=== PATIENT | female | born 1990 | race Caucasian/White ===

== ENCOUNTER → 2016-06-28 | Outpatient (REF) | payer OTHER | LOC: M SFHCADAM 14:54 | PROVIDERS: ATTEND Physician Assistant | DX: R00.2 Palpitations (principal); K21.9 Gastro-esophageal reflux disease without esophagitis; Z53.9 Procedure and treatment not carried out, unspecified reason ==

== ENCOUNTER → 2016-07-15 | Outpatient (CLI) | payer OTHER ==
--- NOTE | 2016-07-15 17:16 | REP ---
Lumbar spine five views: Comparison is 02/22/2012. Vertebral body heights, interspacing and alignment are normal and unchanged. There is no spondylolysis or spondylolisthesis. The pedicles, facets and sacroiliac articulations are unremarkable. Impression: Negative lumbar spine. There is no interval change. Signed by Owen West MD 07/15/2016 10:57 A
== END ==
LOC: M WUC 10:09
PROVIDERS: ATTEND Physician Assistant
DX: S30.0XXA Contusion of lower back and pelvis, initial encounter (principal); X58.XXXA Exposure to other specified factors, initial encounter; Y93.9 Activity, unspecified; Y92.9 Unspecified place or not applicable; Y99.8 Other external cause status

== ENCOUNTER → 2016-12-18 | Outpatient (REF) | payer OTHER ==
[2016-12-18 20:15] LABS: MEAN CORPUSCULAR HEMOGLOBIN 29.9 pg (27.0-33.0); MEAN CORPUSCULAR HGB CONC 33.7 g/dl (32.0-36.5); MEAN CORPUSCULAR VOLUME 88.7 fl (80.0-96.0); RED CELL DISTRIBUTION WIDTH 12.3 % (11.5-14.5); WHITE BLOOD COUNT 6.1 K/mm3 (4.0-10.0)
[2016-12-18 20:24] LABS: ALBUMIN 3.8 GM/DL (3.2-5.2); ALBUMIN/GLOBULIN RATIO 1.09 (1.00-1.93); ALKALINE PHOSPHATASE 99 U/L (45-117); ALT/SGPT 22 U/L (12-78); ANION GAP 8 MEQ/L (8-16); AST/SGOT 12 U/L (15-37); BILIRUBIN,TOTAL 0.5 MG/DL (0.2-1.0); BLOOD UREA NITROGEN 10 MG/DL (7-18); CALCIUM LEVEL 9.2 MG/DL (8.5-10.1); CARBON DIOXIDE LEVEL 27 MEQ/L (21-32); CHLORIDE LEVEL 105 MEQ/L (98-107); CREATININE FOR GFR 0.95 MG/DL (0.55-1.02); GLOMERULAR FILTRATION RATE > 60.0 (>60); GLUCOSE, FASTING 83 MG/DL (70-105); POTASSIUM SERUM 4.6 MEQ/L (3.5-5.1); SODIUM LEVEL 140 MEQ/L (136-145); TOTAL PROTEIN 7.3 GM/DL (6.4-8.2)
== END ==
LOC: M SFHCADAM 11:29
PROVIDERS: ATTEND Physician Assistant
DX: F32.2 Major depressive disorder, single episode, severe without psychotic features (principal); F41.9 Anxiety disorder, unspecified

== ENCOUNTER → 2016-12-19 | Outpatient (REF) | payer OTHER | LOC: M SFHCADAM 09:50 | PROVIDERS: ATTEND Physician Assistant | DX: F32.2 Major depressive disorder, single episode, severe without psychotic features (principal); F41.9 Anxiety disorder, unspecified; Z53.9 Procedure and treatment not carried out, unspecified reason ==

== ENCOUNTER → 2017-02-25 | Outpatient (REF) | payer OTHER, MEDICAID | LOC: M LAB REF 20:59 | PROVIDERS: ATTEND Physician Assistant Medical | DX: J02.9 Acute pharyngitis, unspecified (principal) ==

== ENCOUNTER → 2017-03-25 | Outpatient (CLI) | payer OTHER, MEDICAID ==
--- NOTE | 2017-03-26 17:08 | REP ---
CHEST PA AND LATERAL: 03/25/2017. Clinical history: Productive cough and 3 days. Comparison 07/13/2014. Findings: Two-view show the lung sanchez well inflated. No pleural effusion, lateral pleural thickening, apical scar or pneumothorax. The heart, mediastinal and hilar contours are normal. There is no dense consolidation or parenchymal lung lesion. The airway and aorta were unremarkable. Hilar contours intact. There are a few cuffed bronchi in the perihilar regions that might reflect some reactive airway disease or bronchitis. The aorta and airway unremarkable. Bony thorax without focal lesion or compression deformity. Impression: 1. Perihilar changes of bronchitis or reactive airway disease without dense consolidation or pleural effusion. No other finding. Signed by Sanchez Patterson MD 03/26/2017 05:28 P
== END ==
LOC: M ADAMS 16:46
PROVIDERS: ATTEND Physician Assistant Medical
DX: J20.9 Acute bronchitis, unspecified (principal)

== ENCOUNTER → 2017-03-25 | Outpatient (REF) | payer OTHER, MEDICAID ==
[2017-03-25 20:43] LABS: BASO % 0.8 % (0.0-1.0); EOS # 0.1 10^3/uL (0.0-0.50); EOS % 2.6 % (0.0-3.0); IMMATURE GRANULOCYTE % 0.2 % (0-0); LYMPH # 1.9 10^3/uL (1.5-6.5); LYMPH % 38.3 % (24.0-44.0); MEAN CORPUSCULAR HEMOGLOBIN 29.3 pg (27.0-33.0); MEAN CORPUSCULAR HGB CONC 34.2 g/dl (32.0-36.5); MEAN CORPUSCULAR VOLUME 85.6 fl (80.0-96.0); MONO # 0.6 10^3/uL (0.0-0.8); MONO % 11.6 % (0.0-5.0); NEUTROPHILS # 2.3 10^3/uL (1.8-7.7); NEUTROPHILS % 46.5 % (36.0-66.0); PLATELET COUNT, AUTOMATED 282 10^3/uL (150-450); RED CELL DISTRIBUTION WIDTH 12.2 % (11.5-14.5)
[2017-03-26 10:35] LABS: CONTROL LINE MONO RF C INT CTR LINE PRESENT
== END ==
LOC: M LAB REF 19:30 → M LABDRWAD 19:31
PROVIDERS: ATTEND Physician Assistant Medical
DX: J20.9 Acute bronchitis, unspecified (principal); J06.9 Acute upper respiratory infection, unspecified

== ENCOUNTER → 2019-02-04 | Outpatient (REF) | payer OTHER ==
[2019-02-04 15:58] LABS: HEMATOCRIT 44.8 % (36.0-47.0); HEMOGLOBIN 14.9 g/dl (12.0-15.5); MEAN CORPUSCULAR HEMOGLOBIN 29.2 pg (27.0-33.0); MEAN CORPUSCULAR HGB CONC 33.3 g/dl (32.0-36.5); MEAN CORPUSCULAR VOLUME 87.7 fl (80.0-96.0); PLATELET COUNT, AUTOMATED 319 10^3/uL (150-450); RED BLOOD COUNT 5.11 10^6/uL (4.00-5.40); WHITE BLOOD COUNT 8.6 10^3/uL (4.0-10.0)
[2019-02-04 16:14] LABS: ALBUMIN 3.9 GM/DL (3.2-5.2); ALT/SGPT 19 U/L (12-78); BILIRUBIN,TOTAL 0.4 MG/DL (0.2-1.0); BLOOD UREA NITROGEN 11 MG/DL (7-18); CALCIUM LEVEL 9.1 MG/DL (8.5-10.1); CARBON DIOXIDE LEVEL 27 MEQ/L (21-32); CHLORIDE LEVEL 107 MEQ/L (98-107); CREATININE FOR GFR 1.05 MG/DL (0.55-1.30); FOLATE 10.6 NG/ML; FREE T4 1.21 NG/DL (0.76-1.46); GLOMERULAR FILTRATION RATE > 60.0 (>60); GLUCOSE, FASTING 93 MG/DL (70-100); POTASSIUM SERUM 5.2 MEQ/L (3.5-5.1); SODIUM LEVEL 140 MEQ/L (136-145); TOTAL 25(OH) VITAMIN D 19.1 NG/ML (30.0-100.0); TOTAL PROTEIN 7.1 GM/DL (6.4-8.2); VITAMIN B12 LEVEL 472 PG/ML
== END ==
LOC: M SFHCADAM 14:03
PROVIDERS: ATTEND Physician Assistant
DX: R51 Headache (principal); R06.83 Snoring

== ENCOUNTER → 2019-02-10 | Outpatient (CLI) | payer OTHER ==
--- NOTE | 2019-02-11 10:33 | REP ---
Clinical: Thyroid nodule. Technique: Real time aguilera scale and color evaluation using linear high frequency transducer. Findings: The thyroid gland is normal in contour, parenchymal echotexture and size. Isthmus measures 3 mm in width. Right lobe measures 5.0 x 2.0 x 1.1 cm and includes a nonspecific complex nodule measuring 2.1 x 1.0 x 1.7 cm. Left lobe measures 4.9 x 1.6 x 1.2 cm without nodule or cyst. Impression: 2.1 cm complex cystic nodule in the right lobe. Electronically Signed by Kel Mancia MD 02/11/2019 10:25 A
== END ==
LOC: M RAD 14:58
PROVIDERS: ATTEND Physician Assistant
DX: E04.1 Nontoxic single thyroid nodule (principal)

== ENCOUNTER → 2019-03-16 | Outpatient (REF) | payer OTHER | LOC: M LAB REF 12:56 | PROVIDERS: ATTEND Otolaryngology | DX: E04.1 Nontoxic single thyroid nodule (principal) ==

== ENCOUNTER → 2019-03-26 | Outpatient (CLI) | payer OTHER ==
--- NOTE | 2019-03-26 15:54 | REP ---
Two-view chest: 03/26/2019. Indication: Dyspnea. Comparison: 03/25/2017. Findings: The lungs are clear. There is no pleural effusion or pneumothorax. The cardiomediastinal silhouette is unremarkable. Impression: No acute cardiopulmonary process. Electronically Signed by Florencio Maloney DO 03/26/2019 03:45 P
== END ==
LOC: M ADAMS 15:21
PROVIDERS: ATTEND Physician Assistant
DX: R06.02 Shortness of breath (principal)

== ENCOUNTER → 2019-05-19 | Outpatient (REF) | payer OTHER | LOC: M SFHCADAM 12:41 | PROVIDERS: ATTEND Physician Assistant | DX: J02.9 Acute pharyngitis, unspecified (principal) ==

== ENCOUNTER → 2019-06-08 | Outpatient (REF) | payer OTHER | LOC: M SFHCADAM 09:47 | PROVIDERS: ATTEND Physician Assistant | DX: J02.9 Acute pharyngitis, unspecified (principal) ==

== ENCOUNTER → 2019-06-11 | Outpatient (REF) | payer OTHER | LOC: M SFHCADAM 12:53 | PROVIDERS: ATTEND Physician Assistant | DX: J02.0 Streptococcal pharyngitis (principal) ==

== ENCOUNTER 2019-11-18 07:30 | Day surgery (SDC) | payer OTHER ==
[~2019-11-18 07:30] MED LIST: LIDOCAINE 2% 100MG/5ML SDV (FOR ANES.) As Ordered ONE; MIDAZOLAM INJ 2MG/2ML VIAL (J2250 PER 1MG) As Ordered ONE; ROCURONIUM BROMIDE 50 MG/5 ML VIAL As Ordered ONE; fentaNYL 100 MCG/2 ML INJECTION (J3010) As Ordered ONE; propofoL 200 MG/20 ML VIAL As Ordered ONE
[2019-11-18] MEDS ORDERED: LIDOCAINE 1% SDV 30ML VIAL As Ordered ONE (07:53)
[2019-11-18] MEDS ORDERED: LIDOCAINE W/EPINEPHRINE 1% 20ML VIAL As Ordered ONE (07:54)
[2019-11-18] MEDS ORDERED: MIDAZOLAM INJ 2MG/2ML VIAL (J2250 PER 1MG) As Ordered ONE (07:57)
[2019-11-18] MEDS ORDERED: dexameTHASONE 4 MG/ML 1ML VIAL (J1100 PER 1MG) As Ordered ONE ×2 (08:09→08:10)
[2019-11-18] MEDS ORDERED: ONDANSETRON 4MG/2ML VIAL As Ordered ONE ×2 (08:10→10:16)
[2019-11-18] MEDS ORDERED: HYDROmorphone HCL 2 MG/ML 1ML VIAL (J1170) As Ordered ONE (08:27)
[2019-11-18] MEDS ORDERED: ACETAMINOPHEN 1000MG 100ML IV BTL (OFIRMEV) (J0131 PER 10MG) As Ordered ONE (08:33)
[2019-11-18] MEDS ORDERED: oxyCODONE 5MG TAB As Ordered ONE (08:57)
[2019-11-18] MEDS ORDERED: oxyCODONE 5MG TAB ONE (08:57)
[2019-11-18] MEDS ORDERED: ONDANSETRON 4MG/2ML VIAL ONE (10:16)
--- NOTE | 2020-01-13 11:14 | RO ---
DATE OF OPERATION: PREOPERATIVE DIAGNOSIS: Chronic tonsillitis. POSTOPERATIVE DIAGNOSIS: Chronic tonsillitis. OPERATIVE PROCEDURE: Tonsillectomy. PROCEDURE IN DETAIL: Under general anesthesia with the patient intubated, the patient was draped in the usual manner. I infiltrated with lidocaine with epinephrine. Using the cautery, I dissected the left tonsil free from its bed. I then did the same on the right side. There were some exposed vessels, which were not bleeding, and I cauterized them anyway. The patient tolerated the procedure well. ESTIMATED BLOOD LOSS: None. CONDITION: The patient was then extubated and transferred to the recovery room in excellent condition. DONALDO
== END 2019-11-18 10:45 | disposition home or self-care (01) ==
LOC: M SDC 07:30
PROVIDERS: ATTEND Otolaryngology
DX: J35.01 Chronic tonsillitis (principal); E04.1 Nontoxic single thyroid nodule; Z79.899 Other long term (current) drug therapy
CPT/HCPCS: 42826; 88302; J0131; J1100; J1170; J2250; J2405; J3010

== ENCOUNTER → 2020-02-10 | Outpatient (REF) | payer OTHER ==
[2020-02-10 13:22] LABS: APPEARANCE, URINE CLEAR (CLEAR); BACTERIA, URINE AUTO 1+ (NEGATIVE); BILIRUBIN, URINE AUTO NEGATIVE (NEGATIVE); BLOOD, URINE BLOOD 1+ (NEGATIVE); COLOR, URINE YELLOW (YELLOW); GLUCOSE, URINE (UA) AUTO NEGATIVE (NEGATIVE); KETONE, URINE AUTO NEGATIVE (NEGATIVE); LEUKOCYTE ESTERASE, URINE AUTO NEGATIVE (NEGATIVE); MUCUS, URINE SMALL (NEGATIVE); NITRITE, URINE AUTO NEGATIVE (NEGATIVE); PROTEIN, URINE AUTO NEGATIVE (NEGATIVE); RBC, URINE AUTO 0 /HPF (0-3); SPECIFIC GRAVITY URINE AUTO 1.006 (1.002-1.035); SQUAMOUS EPITHELIAL CELL UR AU 1 /HPF (0-6); UROBILINOGEN, URINE AUTO 0.2 mg/dL (0.0-2.0); WBC, URINE AUTO 0 /HPF (0-3)
[2020-02-10 13:49] LABS: ALBUMIN 3.7 GM/DL (3.2-5.2); ALT/SGPT 32 U/L (12-78); BILIRUBIN,TOTAL 0.4 MG/DL (0.2-1.0); BLOOD UREA NITROGEN 12 MG/DL (7-18); CALCIUM LEVEL 9.5 MG/DL (8.5-10.1); CARBON DIOXIDE LEVEL 26 MEQ/L (21-32); CHLORIDE LEVEL 107 MEQ/L (98-107); CREATININE FOR GFR 0.94 MG/DL (0.55-1.30); FREE T4 1.06 NG/DL (0.76-1.46); GLOMERULAR FILTRATION RATE > 60.0 (>60); GLUCOSE, FASTING 69 MG/DL (70-100); POTASSIUM SERUM 4.9 MEQ/L (3.5-5.1); SODIUM LEVEL 140 MEQ/L (136-145); THYROID STIMULATING HORMONE 0.713 uIU/ML (0.358-3.740); TOTAL PROTEIN 7.2 GM/DL (6.4-8.2)
== END ==
LOC: M SFHCPLAZ 12:10
PROVIDERS: ATTEND Physician Assistant
DX: E87.5 Hyperkalemia (principal); Z86.39 Personal history of other endocrine, nutritional and metabolic disease; Z80.51 Family history of malignant neoplasm of kidney

== ENCOUNTER → 2020-02-18 | Outpatient (REF) | payer OTHER ==
[2020-02-18 13:59] LABS: BASO % 0.8 % (0.0-1.0); EOS # 0.1 10^3/uL (0.0-0.5); EOS % 1.4 % (0.0-3.0); HEMATOCRIT 43.8 % (36.0-47.0); HEMOGLOBIN 14.5 g/dl (12.0-15.5); LYMPH # 2.1 10^3/uL (1.5-5.0); LYMPH % 40.4 % (24.0-44.0); MEAN CORPUSCULAR HEMOGLOBIN 28.3 pg (27.0-33.0); MEAN CORPUSCULAR HGB CONC 33.1 g/dl (32.0-36.5); MEAN CORPUSCULAR VOLUME 85.5 fl (80.0-96.0); MONO # 0.4 10^3/uL (0.0-0.8); MONO % 8.1 % (0.0-5.0); NEUTROPHILS # 2.5 10^3/uL (1.5-8.5); NEUTROPHILS % 48.9 % (36.0-66.0); PLATELET COUNT, AUTOMATED 286 10^3/uL (150-450); RED BLOOD COUNT 5.12 10^6/uL (4.00-5.40); WHITE BLOOD COUNT 5.1 10^3/uL (4.0-10.0)
[2020-02-18 14:40] LABS: MALB URINE SIEMENS 6.7 MG/L; MAU/CREAT RATIO 3.7 MCG/MG (0.0-30.0)
== END ==
LOC: M SFHCADAM 09:23
PROVIDERS: ATTEND Physician Assistant
DX: R00.2 Palpitations (principal); R31.29 Other microscopic hematuria

== ENCOUNTER → 2020-07-20 | Outpatient (CLI) | payer OTHER ==
--- NOTE | 2020-07-23 14:52 | HOLTMON ---
[facility] Test Date: 2020-07-20 Pat Name: ANIYAH KAUR Department: Room: - Gender: Female Television News Reporter: : 1990 Requested By: SHAMIKA Julio PA-C Order Number: [id number] Reading MD: Rajesh Pack Interpretive Statements Your patient was monitored for 48 hours. Her underlying rhythm was sinus with observed heart rate range 49-199, averaging 80 bpm. Fastest rate was associated with nonsustained ventricular tachycardia. No significant bradyarrhythmia or AV block Rare asymptomatic isolated PACs. Rare asymptomatic Unifocal isolated PVCs (Averaging 19/hour), rare ventricular couplets and 63 runs of nonsustained rapid monomorphic ventricular tachycardia (Longest 50 beats; fastest 218 bpm). All ventricular ectopy had a LBBB configuration With prominent R wave inferiorly and QS pattern lead I suggestive of right ventricular outflow tract origin. This is potentially amenable to RF ablation. Curiously, her symptoms did not correlate with her rhythm disturbance. Electronically Signed on 07-23-2020 14:51:41 EDT by Rajesh Pack
== END ==
LOC: M EKG 16:05
PROVIDERS: ATTEND Physician Assistant
DX: R00.2 Palpitations (principal)

== ENCOUNTER 2021-01-25 12:01 | Emergency (ER) | payer OTHER ==
[~2021-01-25] VITALS: Ht 165.1 cm; Wt 98.2 kg
--- OUTSIDE RECORDS SUMMARY | 2021-01-25 12:54 | CCD ---
Author Author [facility] Organization [facility] Address Unknown Phone Unavailable Care Team Providers Care Mental Retardation Aide Name Role Phone Marti Wang Unavailable PROBLEMS ALLERGIES ENCOUNTERS from 1990 to 2020-11-06 IMMUNIZATIONS SOCIAL HISTORY REASON FOR REFERRAL No Information VITAL SIGNS MEDICATIONS PROCEDURES No Information RESULTS No Results REASON FOR VISIT MEDICAL (GENERAL) HISTORY Goals Section Health Concerns MEDICAL EQUIPMENT No Information MENTAL STATUS FUNCTIONAL STATUS ASSESSMENTS No Information PLAN OF TREATMENT Insurance Providers
[2021-01-25 14:51] VITALS: BP 123/70
[2021-01-25] MEDS ORDERED: KETOROLAC 60MG 2ML VIAL IM ONE (15:30)
[2021-01-25] MEDS ORDERED: BACLOFEN 10 MG TAB PO ONE (15:30)
--- OUTSIDE RECORDS SUMMARY | 2021-01-25 15:42 | CCD ---
Author Author [facility] Organization [facility] Address Unknown Phone Unavailable Care Team Providers Care Lumber Racker Name Role Phone Gabriela Wallace Unavailable PROBLEMS Type Condition ICD9-CM Code [id number] Code Onset Dates Condition S tatus W/U Status Risk SNOMED Code Notes Problem Dysthymic disorder 300.4 Active confirmed 7 5612219 Problem Palpitations 785.1 Active confirmed 8885304 2 Problem GERD (gastroesophageal reflux disease) 530.81 A ctive confirmed 553658483 Problem Allergic rhinitis, unspecifi ed allergic rhinitis trigger, unspecified rhinitis seasonality J30.9 Active confirmed 49891982 Problem Gastroesophageal reflux disease without esophagitis K21.9 Active confirmed 610628983 Problem Thyroid nodule E04.1 Active confirmed 77399 5005 Problem Daily headache R51 Active confirmed 12186 8725309 Problem Strain of neck muscle, initial encounter S16.1XXA Active confirmed 136392334 Problem Nonsustained ventricular tachycardia I47.2 Act naseem confirmed 012770065 Problem Anxiety F41.9 Active confirmed 98043259 Problem Allergic rhinitis, unspecified seasonality, unspecifie d trigger J30.9 Active confirmed 51914876 Problem 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, 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 Active confirmed 63619218 Problem Chronic sinusitis, unspecified J32.9 Active confir med 352685079 Problem Tonsillith J35.8 Active confirmed 5452380 Problem Other chronic pain G89.29 Active confirmed 8 2299881 Problem Swollen tonsil J35.1 Active confirmed 44951 4001 ALLERGIES Allergen (clinical drug ingredient) Drug/Non Drug Allergy do cumented on EMR Reaction Allergy Type Onset Date Status Bandaid rash on skin Non Drug Allergy Active cetirizine ZyrTEC flushed face Drug Allergy Active ENCOUNTERS from 1990 to 2021-01-04 Encounter Location Date Provider Diagnosis [facility] [place] [address] [place] [id number] Dec, Gabriela Be-Tartell IMMUNIZATIONS Vaccine Route Administration Date Status Influenza 18 yrs & older Flublok IM Intramuscular Feb 10, 2020 Administered Influenza 18 yrs & older Flublok IM Intramuscular Feb 23, 2019 Administered SOCIAL HISTORY Tobacco Use: Social History Observation Description Date Details (start date - stop date) Never Smoker Sex Assigned At : Social History Observation Description Sex Assigned At Unknown Education: Question Answer Notes Level of Education: GED Audit Question Answer Notes Total Score: 1 Interpretation: Alcohol Education Language: Question Answer Notes Languages spoken: Belizean Domestic Violence: Question Answer Notes Status: Sexual Hx: Question Answer Notes Had sex in the last 12 months (vaginal, oral, or anal)? Yes LMP: 07/22/20 Have you ever had an STD? Yes with Men only Use protection? No Chlamydia? Yes Drug and Alcohol Question Answer Notes Total Score: 0 Interpretation: No problems reported Alcohol Screening: Question Answer Notes Did you have a drink containing alcohol in the past year? Ye s Points 1 Interpretation Negative How often did you have six or more drinks on one occas ion in the past year? Never (0 points) How many drinks did you have on a typica l day when you were drinking in the past year? 1 or 2 (0 points) How often did you have a drink containing alcohol in t he past year? Monthly or less (1 point) BMI Care Goal Follow-Up Question Answer Notes Above Normal BMI Follow-Up Dietary management educatio n, guidance, and counseling Tobacco Use: Question Answer Notes Are you a: never smoker REASON FOR REFERRAL No Information VITAL SIGNS No information MEDICATIONS Medication SIG (Take, Route, Frequency, Duration) Notes Start Da te End Date Status Flonase Allergy Relief 50 MCG/ACT 1 spray in each nost ril Nasally Once a day PRN Sep, Active NuvaRing 0.015-0.12 MG/24HR 1 ring Vaginal Active hydrOXYzine HCl 10 MG TAKE ONE TABLET BY MOUTH THR EE TIMES A DAY NEEDED Orally 3xs a day for 30 days Act naseem Omeprazole 20 MG TAKE ONE CAPSULE BY MOUTH TW ICE A DAY Orally 2xs a day for 90 days Active Metoprolol Tartrate 25 MG 1 tablet with food Orally Twice a day for 30 day(s) Active Claritin 10 MG 1 capsule Orally Once a day for 30 day(s) 1 August, Active PROCEDURES No Information RESULTS No Results REASON FOR VISIT Refills- Omeprazole 20 MG, Hydroxyzine 10MG MEDICAL (GENERAL) HISTORY Type Description Date Medical History Depression and anxiety Medical History GERD Medical History thyroid nodule - FNA biopsy neg 03/2019 Medical History Family h/o Renal Cell Carcinoma - brothe r at 33 y/o Surgical History tonsillectomy 11/2019 Hospitalization History childbirth Goals Section No Information Health Concerns No Information MEDICAL EQUIPMENT No Information MENTAL STATUS No Information FUNCTIONAL STATUS No Information ASSESSMENTS No Information PLAN OF TREATMENT Medication Medication Name Sig Start Date Stop Date hydrOXYzine HCl 10 MG TAKE ONE TABLET BY MOUTH THR EE TIMES A DAY NEEDED Orally 3xs a day for 30 days Omeprazole 20 MG TAKE ONE CAPSULE BY MOUTH TW ICE A DAY Orally 2xs a day for 90 days Insurance Providers Payer Name Payer Address Payer Phone Insured Name Patient Relati onship to Insured Coverage Start Date Coverage End Date [facility] [address] [facility] [phone] ANIYAH KAUR self
--- OUTSIDE RECORDS SUMMARY | 2021-01-25 15:42 | CCD ---
Author Author [facility] Organization [facility] Address Unknown Phone Unavailable Care Team Providers Care Electrical Engineering Draftsperson Name Role Phone Gabriela Wallace Unavailable PROBLEMS Type Condition ICD9-CM Code WQP65-UY Code Onset Dates Condition S tatus W/U Status Risk SNOMED Code Notes Problem Dysthymic disorder 300.4 Active confirmed 7 0115129 Problem Palpitations 785.1 Active confirmed 4580495 2 Problem GERD (gastroesophageal reflux disease) 530.81 A ctive confirmed 226064442 Problem Allergic rhinitis, unspecifi ed allergic rhinitis trigger, unspecified rhinitis seasonality J30.9 Active confirmed 05056039 Problem Gastroesophageal reflux disease without esophagitis K21.9 Active confirmed 488878668 Problem Thyroid nodule E04.1 Active confirmed 47919 5005 Problem Daily headache R51 Active confirmed 96515 9052379 Problem Strain of neck muscle, initial encounter S16.1XXA Active confirmed 986703134 Problem Nonsustained ventricular tachycardia I47.2 Act naseem confirmed 813197500 Problem Anxiety F41.9 Active confirmed 62415248 Problem Allergic rhinitis, unspecified seasonality, unspecifie d trigger J30.9 Active confirmed 08029117 Problem 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, 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 Active confirmed 03518309 Problem Chronic sinusitis, unspecified J32.9 Active confir med 619468457 Problem Tonsillith J35.8 Active confirmed 3396097 Problem Other chronic pain G89.29 Active confirmed 8 8584792 Problem Swollen tonsil J35.1 Active confirmed 65199 4001 ALLERGIES Allergen (clinical drug ingredient) Drug/Non Drug Allergy do cumented on EMR Reaction Allergy Type Onset Date Status Bandaid rash on skin Non Drug Allergy Active cetirizine ZyrTEC flushed face Drug Allergy Active ENCOUNTERS from 1990 to 2020-11-15 Encounter Location Date Provider Diagnosis [facility] [place] [address] [place] [address] Oct, Gabriela Wallace Annual physical exam Z00.00 IMMUNIZATIONS Vaccine Route Administration Date Status Influenza [...] Education Language: Question Answer Notes Languages spoken: Wolof Domestic Violence: Question Answer Notes Status: Sexual [...] REASON FOR REFERRAL No Information VITAL SIGNS Weight 211.2 lbs Oct, Height 65 in Oct, BMI 35.14 kg/m2 Oct, Heart Rate 83 /min Oct, Respiratory Rate 18 /min Oct, Temperature 97.8 degrees Fahrenheit Oct, Oximetry 100 Oct, Blood pressure systolic 110 mm Hg Oct, Blood pressure diastolic 68 mm Hg Oct, MEDICATIONS Medication SIG (Take, Route, Frequency, Duration) Notes Start Da te End Date Status hydrOXYzine HCl 10 MG TAKE ONE TABLET BY MOUTH THR EE TIMES A DAY NEEDED for 30 Active NuvaRing 0.015-0.12 MG/24HR 1 ring Vaginal Active Claritin 10 MG 1 capsule Orally Once a day for 30 day(s) 1 August, Active Flonase Allergy Relief 50 MCG/ACT 1 spray in each nost ril Nasally Once a day PRN Sep, Active Metoprolol Tartrate 25 MG 1 tablet with food Orally Twice a day for 30 day(s) Active Omeprazole 20 MG TAKE ONE CAPSULE BY MOUTH TWICE A DAY for 30 Active PROCEDURES No Information RESULTS No Results REASON FOR VISIT r/s FU MEDICAL (GENERAL) HISTORY Type Description Date Medical [...] No Information FUNCTIONAL STATUS No Information ASSESSMENTS Encounter Date Diagnosis Assessment Notes Treatment Notes Treatm ent Clinical Notes Oct, Annual physical exam (ICD-10 - Z00.00) Patient seen and examined. Past medical, surgical, family, social history reviewed. Discussed preventive medicine, including immunizations. Appropriate labwork has been ordered within the last year. PLAN OF TREATMENT Treatment Notes Assessment Notes Clinical Notes Annual physical exam Patient seen and ex amined. Past medical, surgical, family, social history reviewed. Discussed preventive medicine, including immunizations. Appropriate labwork has been ordered within the last year. Next Appt Details 1 Year Reason:annual Follow Up:1 Yearannual Insurance Providers Payer Name Payer Address Payer Phone Insured Name Patient Relati onship to Insured Coverage Start Date Coverage End Date COUNT INCLUDES THE [facility] [place] [facility] [address] [facility] [id number] ANIYAH KAUR
--- OUTSIDE RECORDS SUMMARY | 2021-01-25 15:42 | CCD | Continuity of Care Document ---
Author Author Ida WONG MD Organization Unknown Address [address] [facility] [address] [place] [address] Phone [phone] Care Team Providers Care Sales Support Coordinator Name Role Phone Alie Schaffer P.A.-C. AUTM [phone] Central Scheduling AUTM [phone] Gabriela Wallace D.O. AUTM Problems Description No Information Available Social History Type Date Description Comments Sex Unknown ETOH Use Denies alcohol use Tobacco Use Start: Unknown Non Smoker Recreational Drug Use Denies Drug Use Allergies, Adverse Reactions, Alerts Active Allergies Reaction Severity Comments Date Zyrtec 03/16/2019 Medications Active Medications SIG Qnty Indications Ordering Provide r Date Nuvaring 0.12-0.015mg/24HR Ring [address] of vagina x 3weeks. remove x 1wk Unknown Omeprazole 20mg Capsules DR 1 by mouth every day Unknown Hydroxyzine HCL 10mg Tablets 1 tab by mouth every night at bedtime as needed for sleep aid / anxiety Unknown Flonase 50mcg/Act Suspension spray one spray in each nostril daily Unknown Metoprolol Tartrate 25mg Tablets Cathy Lewis Immunizations Description No Information Available Vital Signs Date Vital Result Comment 11/07/2020 11:14am Height 65 inches 5'5" Weight 190.00 lb BMI (Body Mass Index) 31.6 kg/m2 [place] Body Weight 125 lb Weight 86.184 kg BSA (Body Surface Area) 1.94 m2 11/25/2019 2:24pm Height 65 inches 5'5" Weight 190.00 lb BMI (Body Mass Index) 31.6 kg/m2 [place] Body Weight 125 lb Weight 86.184 kg BSA (Body Surface Area) 1.94 m2 Results Description No Information Available Procedures Description No Information Available Medical Devices Description No Information Available Encounters Description No Information Available Assessments Description No Information Available Plan of Treatment No Information Available Functional Status Description No Information Available Mental Status Description No Information Available Referrals Refer to Reason for Referral Status Appt Date Jimenez Wong M.D. Scheduled 11/07/[address] [place] [address] [phone]
--- OUTSIDE RECORDS SUMMARY | 2021-01-25 15:42 | CCD ---
Author Author [facility] Organization [facility] Address Unknown Phone Unavailable Care Team Providers Care Filling Hauler Name Role Phone Jimenez Wong MD Unavailable Unavailable Jimenez Wong MD Unavailable Unavailable Jimenez Wong MD Unavailable Unavailable Jimenez Wong MD Unavailable Unavailable Jimenez Wong MD Unavailable Unavailable Jimenez Wong MD Unavailable Unavailable Jimenez Wong MD Unavailable Unavailable Jimenez Wong MD Unavailable Unavailable Jimenez Wong MD Unavailable Unavailable Jimenez Wong MD Unavailable Unavailable Jimenez Wong MD Unavailable Unavailable Jimenez Wong MD Unavailable Unavailable Jimenez Wong MD Unavailable Unavailable Jimenez Wong MD Unavailable Unavailable Jimenez Wong MD Unavailable Unavailable Jimenez Wong MD Unavailable Unavailable Jimenez Wong MD Unavailable Unavailable Jimenez Wong MD Unavailable Unavailable Jimenez Wong MD Unavailable Unavailable Jimenez Wong MD Unavailable Unavailable Jimenez Wong MD Unavailable Unavailable Jimenez Wong MD Unavailable Unavailable Jimenez Wong MD Unavailable Unavailable Jimenez Wong MD Unavailable Unavailable Jimenez Wong MD Unavailable Unavailable Jimenez Wong MD Unavailable Unavailable Jimenez Wong MD Unavailable Unavailable Jimenez Wong MD Unavailable Unavailable Jimenez Wong MD Unavailable Unavailable Jimenez Wong MD Unavailable Unavailable Mclean, V MAYUR PA-C Unavailable Unavailable Mclean, V MAYUR PA-C Unavailable Unavailable Joshua, V MAYUR PA-C Unavailable Unavailable Joshua, V MAYUR PA-C Unavailable Unavailable Joshua, V MAYUR PA-C Unavailable Unavailable Mclean, V MAYUR PA-C Unavailable Unavailable Mclean, V MAYUR PA-C Unavailable Unavailable Mclean, V MAYUR PA-C Unavailable Unavailable Mclean, V MAYUR PA-C Unavailable Unavailable Joshua, V MAYUR PA-C Unavailable Unavailable Mclean, V MAYUR PA-C Unavailable Unavailable Mclean, V MAYUR PA-C Unavailable Unavailable Mclean, V MAYUR PA-C Unavailable Unavailable Joshua, V MAYUR PA-C Unavailable Unavailable Lizette Parker MD Unavailable Unavailable Lizette Parker MD Unavailable Unavailable Lizette Parker MD Unavailable Unavailable Lizette Parker MD Unavailable Unavailable Lizette Parker MD Unavailable Unavailable Lizette Parker MD Unavailable Unavailable Lizette Parker MD Unavailable Unavailable Lizette Parker MD Unavailable Unavailable Lizette Parker MD Unavailable Unavailable Lizette Parker MD Unavailable Unavailable Lizette Parker MD Unavailable Unavailable Lizette Parker MD Unavailable Unavailable Lizette Parker MD Unavailable Unavailable Lizette Parker MD Unavailable Unavailable Lizette Parker MD Unavailable Unavailable Lizette Parker MD Unavailable Unavailable Lizette Parker MD Unavailable Unavailable Lizette Parker MD Unavailable Unavailable Lizette Parker MD Unavailable Unavailable Lizette Parker MD Unavailable Unavailable Lizette Parker MD Unavailable Unavailable Lizette Parker MD Unavailable Unavailable Lizette Parker MD Unavailable Unavailable Lizette Parker MD Unavailable Unavailable Lizette Parker MD Unavailable Unavailable Wetterhahn, M Alie PA Unavailable Unavailable Wetterhahn, M Alie PA Unavailable Unavailable Wetterhahn, M Alie PA Unavailable Unavailable Wetterhahn, M Alie PA Unavailable Unavailable Wetterhahn, M Alie PA Unavailable Unavailable Wetterhahn, M Alie PA Unavailable Unavailable Wetterhahn, M Alie PA Unavailable Unavailable Wetterhahn, M Alie PA Unavailable Unavailable Wetterhahn, M Alie PA Unavailable Unavailable Wetterhahn, M Alie PA Unavailable Unavailable Wetterhahn, M Alie PA Unavailable Unavailable Wetterhahn, M Alie PA Unavailable Unavailable Wetterhahn, M Alie PA Unavailable Unavailable Wetterhahn, M Alie PA Unavailable Unavailable Wetterhahn, M Alie PA Unavailable Unavailable Wetterhahn, M Alie PA Unavailable Unavailable Wetterhahn, M Alie PA Unavailable Unavailable Wetterhahn, M Alie PA Unavailable Unavailable Wetterhahn, M Alie PA Unavailable Unavailable Wetterhahn, M Alie PA Unavailable Unavailable Wetterhahn, M Alie PA Unavailable Unavailable Wetterhahn, M Alie PA Unavailable Unavailable Wetterhahn, M Alie PA Unavailable Unavailable Wetterhahn, M Alie PA Unavailable Unavailable Wetterhahn, M Alie PA Unavailable Unavailable Wetterhahn, M Alie PA Unavailable Unavailable Wetterhahn, M Alie PA Unavailable Unavailable Wetterhahn, M Alie PA Unavailable Unavailable Wetterhahn, M Alie PA Unavailable Unavailable Wetterhahn, M Alie PA Unavailable Unavailable Wetterhahn, M Alie PA Unavailable Unavailable Wetterhahn, M Alie PA Unavailable Unavailable Wetterhahn, M Alie PA Unavailable Unavailable Wetterhahn, M Alie PA Unavailable Unavailable Wetterhahn, M Alie PA Unavailable Unavailable Wetterhahn, M Alie PA Unavailable Unavailable Wetterhahn, M Alie PA Unavailable Unavailable Wetterhahn, M Alie PA Unavailable Unavailable Wetterhahn, M Alie PA Unavailable Unavailable Wetterhahn, M Alie PA Unavailable Unavailable Wetterhahn, M Alie PA Unavailable Unavailable Wetterhahn, M Alie PA Unavailable Unavailable Wetterhahn, M Alie PA Unavailable Unavailable Wetterhahn, M Alie PA Unavailable Unavailable Wetterhahn, M Alie PA Unavailable Unavailable Wetterhahn, M Alie PA Unavailable Unavailable Wetterhahn, M Alie PA Unavailable Unavailable Wetterhahn, M Alie PA Unavailable Unavailable Wetterhahn, M Alie PA Unavailable Unavailable Wetterhahn, M Alie PA Unavailable Unavailable Wetterhahn, M Alie PA Unavailable Unavailable Wetterhahn, M Alie PA Unavailable Unavailable Wetterhahn, M Alie PA Unavailable Unavailable Wetterhahn, M Alie PA Unavailable Unavailable Wetterhahn, M Alie PA Unavailable Unavailable Hernandez, Badger Isabell Unavailable Unavailable Hernandez, Badger Isabell Unavailable Unavailable Hernandez, Badger Isabell Unavailable Unavailable Hernandez, Badger Isabell Unavailable Unavailable Hernandez, Badger Isabell Unavailable Unavailable Hernandez, Badger Isabell Unavailable Unavailable Hernandez, Badger Isabell Unavailable Unavailable Hernandez, Badger Isabell Unavailable Unavailable Hernandez, Badger Isabell Unavailable Unavailable Hernandez, Badger Isabell Unavailable Unavailable Hernandez, Badger Isabell Unavailable Unavailable Hernandez, Badger Isabell Unavailable Unavailable Hernandez, Badger Isabell Unavailable Unavailable Re-disclosure Warning The records that you are about to access may contain information from federally-assisted alcohol or drug abuse programs. If such information is present, then the following federally mandated warning applies: This information has been disclosed to you from records protected by federal confidentiality rules (42 CFR part 2). The federal rules prohibit you from making any further disclosure of this information unless further disclosure is expressly permitted by the written consent of the person to whom it pertains or as otherwise permitted by 42 CFR part 2. A general authorization for the release of medical or other information is NOT sufficient for this purpose. The Federal rules restrict any use of the information to criminally investigate or prosecute any alcohol or drug abuse patient.The records that you are about to access may contain highly sensitive health information, the redisclosure of which is protected by Article 27-F of the [facility] Public Health law. If you continue you may have access to information: Regarding HIV / AIDS; Provided by facilities licensed or operated by the [facility] Office of Mental Health; or Provided by the [facility] Office for People With Developmental Disabilities. If such information is present, then the following [facility] mandated warning applies: This information has been disclosed to you from confidential records which are protected by state law. State law prohibits you from making any further disclosure of this information without the specific written consent of the person to whom it pertains, or as otherwise permitted by law. Any unauthorized further disclosure in violation of state law may result in a fine or group home sentence or both. A general authorization for the release of medical or other information is NOT sufficient authorization for further disc losure. Allergies and Adverse Reactions Type Description Substance Reaction Status Data Source(s ) Propensity to adverse reactions CETIRIZINE Cetirizine Acti ve [facility] Allergy to substance Allergy to substance Allergy to substance [place] ([facility]) Allergy to substance Allergy to substance Allergy to substance [place] ([facility]) Family History Family Member Name Family Member Gender Family Member Status Date o f Status Description Data Source(s) Unknown Unknown Problem MEDENT ([facility]) father Encounters Encounter Providers Location Date Indications Data Source(s ) Unknown [address] [facility] [address] 01/04/2021 12:00:00 AM EDT eCW1 ([facility]) Outpatient Attender: MAYUR HERNANDEZVAUGHN-SJP.VAUGHN 12:00:00 AM EDT - 12/04/2020 01:52:44 PM EDT [facility] Outpatient Attender: Jimenez Larry/Marvin/Beto/Angelica jimenez 11/07/2020 11:10:00 AM EDT MEDENT ([facility]) [place] [address] [facility] [address] 11/06/2020 12:00:00 AM EDT eCW1 ([facility]) Outpatient [address] [facility] [address] 11/02/2020 12:00:00 AM EDT eCW1 ([facility]) Outpatient Attender: MAYUR HERNANDEZVAUGHN-SJP.VAUGHN 07:11:47 AM EDT [facility] Unknown [address] [facility] [address] 10/27/2020 12:00:00 AM EDT eCW1 ([facility]) Outpatient Referrer: MAYUR HERNANDEZCT-SJP.SYR 12:00:00 AM EDT [facility] Outpatient Attender: MAYUR Mccrackenferrer: RIKKI HERNANDEZVAUGHN-SJP.VAUGHN 10/19/2020 08:58:26 AM EDT - 10/19/2020 11:26:00 AM EDT [facility] Outpatient Attender: MAYUR Mccrackenferrer: RIKKI HERNANDEZVAUGHN-SJP.VAUGHN 10/19/2020 08:58:04 AM EDT - 10/19/2020 10:25:43 AM EDT [facility] Outpatient Referrer: MAYUR HERNANDEZVAUGHN-SJPJustinaVAUGHN 12:00:00 AM EDT [facility] Unknown [address] [facility] [address] 09/13/2020 12:00:00 AM EDT eCW1 ([facility]) Outpatient [address] [facility] [address] 08/23/2020 12:00:00 AM EDT eCW1 ([facility]) Unknown [address] [facility] [address] 08/23/2020 12:00:00 AM EDT eCW1 ([facility]) JOLYNN Currie-C: [address] [place] [phone], Ph. Attender: Isabell Hernandez [facility] 08/15/2020 12:00:00 AM EDT [place]IS ([facility]) Outpatient Attender: MAYUR Mccrackenferrer: Snow PEREZ.VAUGHN-SJP 08/07/2020 01:08:40 PM EDT - 08/07/2020 02:30:29 PM EDT [facility] Outpatient [address] [facility] [address] 07/27/2020 12:00:00 AM EDT eCW1 ([facility]) Unknown [address] [facility] [address] 07/27/2020 12:00:00 AM EDT eCW1 ([facility]) Unknown [address] [facility] [address] 07/24/2020 12:00:00 AM EDT eCW1 ([facility]) HERMELINDO CurrieC: [address] [place] [address], Ph. Attender: Isabell Hernandez [facility] Medical 07/18/2020 12:00:00 AM EDT LUIS ([facility]) HERMELINDO CurrieC: [address] [place] [address], Ph. Attender: Isabell Hernandez [facility] Medical 07/18/2020 12:00:00 AM EDT [place] ([facility]) [place] [address] [facility] [address] 07/13/2020 12:00:00 AM EDT eCW1 ([facility]) Unknown [address] [facility] [address] 07/12/2020 12:00:00 AM EDT eCW1 ([facility]) Outpatient Attender: Sharmaine Parker MD 0 05/26/2020 02:20:41 PM EST - 05/26/2020 03:24:06 PM EST [facility]Tap ([facility]) Unknown [address] [facility] [address] 03/07/2020 12:00:00 AM EST eCW1 [facility] Unknown [address] [facility] [address] 03/06/2020 12:00:00 AM EST eCW1 ([facility]) Unknown [address] [facility] [place] [address] 02/25/2020 12:00:00 AM EST eCW1 ([facility]) Unknown [address] [facility] [address] 02/24/2020 12:00:00 AM EST eCW1 ([facility]) Outpatient [address] [facility] [place] [address] 02/18/2020 12:00:00 AM EST eCW1 ([facility]) Outpatient [address] [facility] [address] 02/10/2020 12:00:00 AM EST eCW1 ([facility]) Immunizations Vaccine Date Status Description Data Source(s) COVID-19, mRNA, LNP-S, PF, 100 mcg/0.5 mL dose 08/15/2020 04 :29:14 PM EDT completed 10.5 mL [place] ([facility]) COVID-19 VACCINE Moderna 08/15/2020 12:00:00 AM EDT completed [facility] Vaccine Series Complete: YESThis Data wa s Submitted to [facility] Via [facility] [facility]. COVID-19, mRNA, LNP-S, PF, 100 mcg/0.5 mL dose 07/18/2020 04 :43:39 PM EDT completed .5 mL [place] ([facility]) COVID-19, mRNA, LNP-S, PF, 100 mcg/0.5 mL dose 07/18/2020 04 :43:39 PM EDT completed .5 mL [place] ([facility]) COVID-19 VACCINE Moderna 07/18/2020 12:00:00 AM EDT completed [facility] Vaccine Series Complete: NOThis Data was Submitted to [facility] Via [facility]. influenza, recombinant, quadrIvalent,injectable, prese rvative free 02/10/2020 09:20:00 AM EST completed eCW1 ([facility]) influenza, recombinant, quadrIvalent,injectable, prese rvative free 02/10/2020 09:20:00 AM EST completed eCW1 ([facility]) influenza, recombinant, quadrIvalent,injectable, prese rvative free 02/10/2020 09:20:00 AM EST completed eCW1 ([facility]) influenza, recombinant, quadrIvalent,injectable, prese rvative free 02/10/2020 09:20:00 AM EST completed eCW1 ([facility]) influenza, recombinant, quadrIvalent,injectable, prese rvative free 02/10/2020 09:20:00 AM EST completed eCW1 ([facility]) influenza, recombinant, quadrIvalent,injectable, prese rvative free 02/10/2020 09:20:00 AM EST completed eCW1 ([facility]) influenza, recombinant, quadrIvalent,injectable, prese rvative free 02/10/2020 09:20:00 AM EST completed eCW1 ([facility]) influenza, recombinant, quadrIvalent,injectable, prese rvative free 02/10/2020 09:20:00 AM EST completed eCW1 ([facility]) influenza, recombinant, quadrIvalent,injectable, prese rvative free 02/10/2020 09:20:00 AM EST completed eCW1 ([facility]) influenza, recombinant, quadrIvalent,injectable, prese rvative free 02/10/2020 09:20:00 AM EST completed eCW1 ([facility]) influenza, recombinant, quadrIvalent,injectable, prese rvative free 02/10/2020 09:20:00 AM EST completed eCW1 ([facility]) influenza, recombinant, quadrIvalent,injectable, prese rvative free 02/10/2020 09:20:00 AM EST completed eCW1 ([facility]) influenza, recombinant, quadrIvalent,injectable, prese rvative free 02/10/2020 09:20:00 AM EST completed eCW1 ([facility]) influenza, recombinant, quadrIvalent,injectable, prese rvative free 02/10/2020 09:20:00 AM EST completed eCW1 ([facility]) influenza, recombinant, quadrIvalent,injectable, prese rvative free 02/10/2020 09:20:00 AM EST completed eCW1 ([facility]) influenza, recombinant, quadrIvalent,injectable, prese rvative free 02/10/2020 09:20:00 AM EST completed eCW1 ([facility]) influenza, recombinant, quadrIvalent,injectable, prese rvative free 02/10/2020 09:20:00 AM EST completed eCW1 ([facility]) influenza, recombinant, quadrIvalent,injectable, prese rvative free 02/10/2020 09:20:00 AM EST completed eCW1 ([facility]) Medications Medication Brand Name Start Date Product Form Dose Route Admi nistrative Instructions Pharmacy Instructions Status Indications Reaction Description Data Source(s) 10 mg 01/05/2021 12:00:00 AM EDT tablet 90 TAKE ONE TABLET BY MOUTH THREE TIMES A DAY NEEDED TAKE ONE TABLET BY MOUTH THREE TIMES A DAY NEEDED S OLD: 01/06/2021 [facility] 20 mg 01/05/2021 12:00:00 AM EDT capsule,delayed release (DR/EC) 180 TAKE ONE CAPSULE BY MOUTH TWICE A DAY TAKE ONE CAPSULE BY MOUTH TWICE A DAY SOLD: 01/06/2021 [facility] Metoprolol Tartrate 25 MG Oral Tablet me toprolol tartrate (LOPRESSOR) 25 MG tablet metoprolol tartrate (LOPRESSOR) 25 MG tablet 12/04/2020 12:0 0:00 AM EDT 25 mg Oral active Take 1 tablet (2 5 mg total) by mouth 2 (two) times a day [facility] 25 mg 12/04/2020 12:00:00 AM EDT tablet 60 TAKE ONE TABLET BY MOUTH TWICE A DAY TAKE ONE TABLET BY MOUTH TWICE A DAY SOLD: 12/13/2020 [facility] 25 mg 12/04/2020 12:00:00 AM EDT tablet 60 TAKE ONE TABLET BY MOUTH TWICE A DAY TAKE ONE TABLET BY MOUTH TWICE A DAY SOLD: 01/13/2021 [facility] Metoprolol Tartrate 25 MG Oral Tablet me toprolol tartrate (LOPRESSOR) 25 MG tablet metoprolol tartrate (LOPRESSOR) 25 MG tablet 12/04/2020 12:0 0:00 AM EDT aborted TAKE ONE TABLET BY MOUTH TWICE A DAY [facility] 0.12-0.015 mg/24 hr 10/17/2020 12:00:00 AM EDT ring 3 INSERT ONE RING VAGINALLY. LEAVE IN FOR 3 WEEKS AND ONE WEEK FREE INSERT ONE RING VAGINALLY. LEAVE IN FOR 3 WEEKS AND ONE WEEK FREE SOLD: 01/06/2021 [facility] 0.12-0.015 mg/24 hr 10/17/2020 12:00:00 AM EDT ring 3 INSERT ONE RING VAGINALLY. LEAVE IN FOR 3 WEEKS AND ONE WEEK FREE INSERT ONE RING VAGINALLY. LEAVE IN FOR 3 WEEKS AND ONE WEEK FREE SOLD: 10/17/2020 [facility] Loratadine 10 MG Oral Tablet loratadine (CLARITIN) 10 MG tablet loratadine (CLARITIN) 10 MG tablet 09/23/2020 12:00:00 AM EDT 10 mg Oral active Take 10 mg by mouth daily [facility] 10 mg 08/24/2020 12:00:00 AM EDT tablet 30 TAKE ONE TABLET BY MOUTH EVERY DAY TAKE ONE TABLET BY MOUTH EVERY DAY SOLD: 12/02/2020 [facility] 10 mg 08/24/2020 12:00:00 AM EDT tablet 30 TAKE ONE TABLET BY MOUTH EVERY DAY TAKE ONE TABLET BY MOUTH EVERY DAY SOLD: 08/26/2020 [facility] 10 mg 08/24/2020 12:00:00 AM EDT tablet 30 TAKE ONE TABLET BY MOUTH EVERY DAY TAKE ONE TABLET BY MOUTH EVERY DAY SOLD: 11/01/2020 [facility] 10 mg 08/24/2020 12:00:00 AM EDT tablet 30 TAKE ONE TABLET BY MOUTH EVERY DAY TAKE ONE TABLET BY MOUTH EVERY DAY SOLD: 01/01/2021 [facility] 10 mg 08/24/2020 12:00:00 AM EDT tablet 30 TAKE ONE TABLET BY MOUTH EVERY DAY TAKE ONE TABLET BY MOUTH EVERY DAY SOLD: 09/29/2020 [facility] Loratadine 10 MG Oral Capsule [Claritin] Claritin 10 MG Clar itin 10 MG 08/23/2020 12:00:00 AM EDT 1.0 {capsule} active Claritin 10 MG eCW1 ([facility]) Loratadine 10 MG Oral Capsule [Claritin] Claritin 10 MG Clar itin 10 MG 08/23/2020 12:00:00 AM EDT 1.0 {capsule} active Claritin 10 MG eCW1 ([facility]) Loratadine 10 MG Oral Capsule [Claritin] Claritin 10 MG Clar itin 10 MG 08/23/2020 12:00:00 AM EDT 1.0 {capsule} active Claritin 10 MG eCW1 ([facility]) Loratadine 10 MG Oral Capsule [Claritin] Claritin 10 MG Clar itin 10 MG 08/23/2020 12:00:00 AM EDT 1.0 {capsule} active Claritin 10 MG eCW1 ([facility]) Loratadine 10 MG Oral Capsule [Claritin] Claritin 10 MG Clar itin 10 MG 08/23/2020 12:00:00 AM EDT 1.0 {capsule} active eCW1 ([facility]) Loratadine 10 MG Oral Capsule [Claritin] Claritin 10 MG Clar itin 10 MG 08/23/2020 12:00:00 AM EDT 1.0 {capsule} active eCW1 ([facility]) Loratadine 10 MG Oral Capsule [Claritin] Claritin 10 MG Clar itin 10 MG 08/23/2020 12:00:00 AM EDT 1.0 {capsule} active Claritin 10 MG eCW1 ([facility]) 25 mg 08/08/2020 12:00:00 AM EDT tablet 60 TAKE ONE TABLET BY MOUTH TWICE A DAY TAKE ONE TABLET BY MOUTH TWICE A DAY SOLD: 10/06/2020 [facility] 25 mg 08/08/2020 12:00:00 AM EDT tablet 60 TAKE ONE TABLET BY MOUTH TWICE A DAY TAKE ONE TABLET BY MOUTH TWICE A DAY SOLD: 08/09/2020 [facility] 25 mg 08/08/2020 12:00:00 AM EDT tablet 60 TAKE ONE TABLET BY MOUTH TWICE A DAY TAKE ONE TABLET BY MOUTH TWICE A DAY SOLD: 09/06/2020 [facility] 25 mg 08/08/2020 12:00:00 AM EDT tablet 60 TAKE ONE TABLET BY MOUTH TWICE A DAY TAKE ONE TABLET BY MOUTH TWICE A DAY SOLD: 11/04/2020 [facility] Metoprolol Tartrate 25 MG Oral Tablet me toprolol tartrate (LOPRESSOR) 25 MG tablet metoprolol tartrate (LOPRESSOR) 25 MG tablet 08/07/2020 12:0 0:00 AM EDT 25 mg Oral active Take 1 tablet (2 5 mg total) by mouth 2 (two) times a day [facility] 20 mg 08/04/2020 12:00:00 AM EDT capsule,delayed release (DR/EC) 60 TAKE ONE CAPSULE BY MOUTH TWICE A DAY TAKE ONE CAPSULE BY MOUTH TWICE A DAY SOLD: 08/06/2020 [facility] 20 mg 08/04/2020 12:00:00 AM EDT capsule,delayed release (DR/EC) 60 TAKE ONE CAPSULE BY MOUTH TWICE A DAY TAKE ONE CAPSULE BY MOUTH TWICE A DAY SOLD: 12/02/2020 [facility] 20 mg 08/04/2020 12:00:00 AM EDT capsule,delayed release (DR/EC) 60 TAKE ONE CAPSULE BY MOUTH TWICE A DAY TAKE ONE CAPSULE BY MOUTH TWICE A DAY SOLD: 10/06/2020 [facility] 20 mg 08/04/2020 12:00:00 AM EDT capsule,delayed release (DR/EC) 60 TAKE ONE CAPSULE BY MOUTH TWICE A DAY TAKE ONE CAPSULE BY MOUTH TWICE A DAY SOLD: 11/04/2020 [facility] 20 mg 08/04/2020 12:00:00 AM EDT capsule,delayed release (DR/EC) 60 TAKE ONE CAPSULE BY MOUTH TWICE A DAY TAKE ONE CAPSULE BY MOUTH TWICE A DAY SOLD: 09/06/2020 [facility] 5-325 mg 05/17/2020 12:00:00 AM EST tablet 12 TAKE 1 TABLET BY MOUTH EVERY 6 HOURS NEEDED FOR PAIN MAXIMUM DAILY DOSE = 4 TABLETS TAKE 1 TABLET BY MOUTH EVERY 6 HOURS NEEDED FOR PAIN MAXIMUM DAILY DOSE = 4 TABLETS SOLD: 05/17/2020 [facility] 50 mcg/actuation 03/08/2020 12:00:00 AM EST spray,suspension 16 SPRAY 1 IN EACH NOSTRIL ONCE A DAY SPRAY 1 IN EACH NOSTRIL ONCE A DAY SOLD: 04/08/2020 [facility] 50 mcg/actuation 03/08/2020 12:00:00 AM EST spray,suspension 16 SPRAY 1 IN EACH NOSTRIL ONCE A DAY SPRAY 1 IN EACH NOSTRIL ONCE A DAY SOLD: 03/11/2020 [facility] 20 mg 01/10/2020 12:00:00 AM EDT capsule,delayed release (DR/EC) 60 TAKE ONE CAPSULE BY MOUTH TWICE A DAY TAKE ONE CAPSULE BY MOUTH TWICE A DAY SOLD: 07/07/2020 [facility] 20 mg 01/10/2020 12:00:00 AM EDT capsule,delayed release (DR/EC) 60 TAKE ONE CAPSULE BY MOUTH TWICE A DAY TAKE ONE CAPSULE BY MOUTH TWICE A DAY SOLD: 05/08/2020 [facility] 20 mg 01/10/2020 12:00:00 AM EDT capsule,delayed release (DR/EC) 60 TAKE ONE CAPSULE BY MOUTH TWICE A DAY TAKE ONE CAPSULE BY MOUTH TWICE A DAY SOLD: 04/08/2020 [facility] 20 mg 01/10/2020 12:00:00 AM EDT capsule,delayed release (DR/EC) 60 TAKE ONE CAPSULE BY MOUTH TWICE A DAY TAKE ONE CAPSULE BY MOUTH TWICE A DAY SOLD: 01/11/2020 [facility] 20 mg 01/10/2020 12:00:00 AM EDT capsule,delayed release (DR/EC) 60 TAKE ONE CAPSULE BY MOUTH TWICE A DAY TAKE ONE CAPSULE BY MOUTH TWICE A DAY SOLD: 06/06/2020 [facility] 20 mg 01/10/2020 12:00:00 AM EDT capsule,delayed release (DR/EC) 60 TAKE ONE CAPSULE BY MOUTH TWICE A DAY TAKE ONE CAPSULE BY MOUTH TWICE A DAY SOLD: 03/11/2020 [facility] 10 mg 11/10/2019 12:00:00 AM EDT tablet 90 TAKE ONE TABLET BY MOUTH THREE TIMES A DAY NEEDED TAKE ONE TABLET BY MOUTH THREE TIMES A DAY NEEDED S OLD: 04/08/2020 [facility] 10 mg 11/10/2019 12:00:00 AM EDT tablet 90 TAKE ONE TABLET BY MOUTH THREE TIMES A DAY NEEDED TAKE ONE TABLET BY MOUTH THREE TIMES A DAY NEEDED S OLD: 01/11/2020 [facility] 10 mg 11/10/2019 12:00:00 AM EDT tablet 90 TAKE ONE TABLET BY MOUTH THREE TIMES A DAY NEEDED TAKE ONE TABLET BY MOUTH THREE TIMES A DAY NEEDED S OLD: 03/11/2020 [facility] 10 mg 11/10/2019 12:00:00 AM EDT tablet 90 TAKE ONE TABLET BY MOUTH THREE TIMES A DAY NEEDED TAKE ONE TABLET BY MOUTH THREE TIMES A DAY NEEDED S OLD: 12/09/2019 [facility] 50 mcg/actuation 09/07/2019 12:00:00 AM EDT spray,suspension 16 SPRAY 1 SPRAY IN EACH NOSTRIL ONCE DAILY (THIS WILL LAST 60 DAYS) SPRAY 1 SPRAY IN EACH NOSTRIL ONCE DAILY (THIS WILL LAST 60 DAYS) SOLD: 12/09/2019 [facility] 50 mcg/actuation 09/07/2019 12:00:00 AM EDT spray,suspension 16 SPRAY 1 SPRAY IN EACH NOSTRIL ONCE DAILY (THIS WILL LAST 60 DAYS) SPRAY 1 SPRAY IN EACH NOSTRIL ONCE DAILY (THIS WILL LAST 60 DAYS) SOLD: 01/11/2020 [facility] 0.12-0.015 mg/24 hr 08/19/2019 12:00:00 AM EDT ring 3 INSERT 1 RING VAGINALLY EVERY 3 WEEKS THEN 1 RING-FREE WEEK DIRECTED INSERT 1 RING VAGINALLY EVERY 3 WEEKS THEN 1 RING-FREE WEEK DIRECTED SOLD: 07/25/2020 [facility] 0.12-0.015 mg/24 hr 08/19/2019 12:00:00 AM EDT ring 3 INSERT 1 RING VAGINALLY EVERY 3 WEEKS THEN 1 RING-FREE WEEK DIRECTED INSERT 1 RING VAGINALLY EVERY 3 WEEKS THEN 1 RING-FREE WEEK DIRECTED SOLD: 02/07/2020 [facility] 0.12-0.015 mg/24 hr 08/19/2019 12:00:00 AM EDT ring 3 INSERT 1 RING VAGINALLY EVERY 3 WEEKS THEN 1 RING-FREE WEEK DIRECTED INSERT 1 RING VAGINALLY EVERY 3 WEEKS THEN 1 RING-FREE WEEK DIRECTED SOLD: 05/01/2020 [facility] Insurance Providers Payer name Policy type / Coverage type Policy ID Covered green party ID Covered green party's relationship to albarran Policy Albarran Plan Information [facility] MEDICAID [id number] [place] [id number] [facility] MEDICAID [id number] [place] [employer] [id number] Self [id number] RPR- Needs Payer Match [id number] Self [id number] [facility] Health Maintenance Organization (O) [id number] Self [id number] [facility] Health Maintenance Organization (O) [id number] Self [id number] [facility] Health Maintenance Organization (O) [id number] Self [id number] [facility] [id number] [facility] Health Maintenance Organization (O) [id number] [facility] Health Maintenance Organization [place] [id number] [facility] Health Maintenance Organization [place] [id number] [facility] Health Maintenance Organization [place] [id number] [facility] Health Maintenance Organization ([facility] [id number] [facility] Health Maintenance Organization (O) [id number] [facility] Health Maintenance Organization (O) [id number] [facility] Health Maintenance Organization [place] [id number] [facility] Health Maintenance Organization (O) [id number] Self [facility](MCAID) P [id number] S [id number] [employer] [place] 306/8 S [id number] OTHER WORKERS COMPENSATI P [id number] S [id number] UNHC AMERICHOICE XIX O [id number] 18 [id number] BLUE CROSS BRENNER PLAN [id number] SP [id number] UNHC COMMUNITY PLAN [facility] [id number] SP [id number] [facility] COMMUNITY PLAN [facility] [id number] SP [id number] [facility] [id number] [facility] [id number] SP [id number] Problems, Conditions, and Diagnoses Code Display Name Description Problem Type Effective Dates Data Source(s) R00.2 Palpitations Palpitations Diagnosis 12/04/2020 09:47:25 A M EDT [facility] Z68.35 Body mass index (BMI) 35.0-35.9, adult B katherin mass index (BMI) 35.0-35.9, adult Diagnosis 10/19/2020 08:58:26 AM EDT [facility] E66.09 Other obesity due to excess calories Oth er obesity due to excess calories Diagnosis 10/19/2020 08:58:26 AM EDT [facility] I47.2 Ventricular tachycardia Ventricular tachycardia Diagno sis 10/19/2020 08:58:04 AM EDT [facility] R03.0 Elevated blood-pressure reading, without diagnosis of hypertension Elevated blood-pressure reading, without Diagnosis 08/07/2020 01:08:40 PM EDT [facility] J30.9 [id number] Allergic rhinitis, unspecified s easonality, unspecified trigger Problem 08/23/2020 12:00:00 AM EDT eC ([facility]) R03.0 Elevated blood pressure reading Elevated blood pressur e reading [id number] 08/07/2020 12:00:00 AM EDT [facility] E66.09 Class 2 obesity due to excess calories i n adult Class 2 obesity due to excess calories in adult [id number] 08/07/2020 12:00:00 AM EDT [facility] I47.2 NSVT (nonsustained ventricular tachycard ia) NSVT (nonsustained ventricular tachycardia) [id number] 08/07/2020 12:00:00 AM EDT [facility] I47.2 [id number] Nonsustained ventricular tachycardia Prob lisseth 07/27/2020 12:00:00 AM EDT eCW1 ([facility]) Surgeries/Procedures Procedure Description Date Indications Data Source(s) THYROID STIMULATING HORMONE TSH <td>TSH</td><td>Routin e</td><td>12/04/2020 3:01 PM EDT</td><td> Palpitations</td><td> </td> 12/04/2020 03:01:00 PM EDT Palpitations [facility] Palpitations BLOOD COUNT COMPLETE AUTOMATED <td>CBC</td><td>Routine </td><td>12/04/2020 3:01 PM EDT</td><td> Palpitations</td><td> </td> 12/04/2020 03:01:00 PM EDT Palpitations [facility] Palpitations BASIC METABOLIC PANEL CALCIUM TOTAL <td>BASIC METABOLI C PANEL</td><td>Routine</td><td>12/04/2020 3:01 PM EDT</td><td> Palpitations</td><td> </td> 12/04/2020 03:01:00 PM EDT Palpitations [facility] Palpitations THYROXINE FREE <td>T4, FREE</td><td>Routine </td><td>12/04/2020 3:01 PM EDT</td><td></td><td> </td> 12/04/2020 03:01:00 PM EDT [facility] ECG ROUTINE ECG W/LEAST 12 LDS W/I&R <td>POCT AMB EKG</td><td>Routine</td><td>12/04/2020 10:55 AM EDT</td><td> Palpitations</td><td> </td> 12/04/2020 10:55:00 AM EDT Palpitations [facility] Palpitations OFFICE OUTPATIENT VISIT 15 MINUTES 11/07/2020 12:00:00 AM EDT MEDENT ([facility] ) ECG ROUTINE ECG W/LEAST 12 LDS W/I&R 02/18/2020 12:00: 00 AM EST eCW1 ([facility]) Immunization: Flublok Quadrivalent (18 years & older) 0.5mL IM (Influenza) 02/10/2020 12:00:00 AM EST eCW1 ([facility]) Results ID Date Data Source [id number] 12/05/2020 10:40:32 PM EDT [facility] [place] Name Value Range Interpretation Code Description Data Kaela rce(s) Supporting Document(s) FREE THYROXINE @ 1.02 ng/dL (0.76-1.46) [facility] ID Date Data Source [id number] 10/24/2020 10:08:37 PM EDT [facility] Name Value Range Interpretation Code Description Data Kaela rce(s) Supporting Document(s) &PDF [facility] WARXSo7rHcUKQbQh69/FDXdxODIoe6JfPVmzDRv6DJofMTWbU4AatQxuWE4VIhRDR1zpPP9HWeNFAS6a oRX [file] Mz9Ne0GpOJIdZYqKuPMxHOLgIySMKBWh/5+HxBV++f//printing table worker+210qUTAwT6K0QOk+ScS1ChXO/yVZD3DZ f+n//35uVNoBYYpcHQ9tyO2A8X94qretBKXr3lN3Bp+BAr0+J/+lQwX8f/8Hg3/PCUV9i1OIwBnZN4ZR R6gAs/dmR37tkK4hWYKINC6ZVM4FLO7si2LgASMuTY okprViDbeJWqNkNMRlq5UoXCv5SR7MRORoNZdwXG8MK4QdOST9I0H6CkV3mVOgCL2eC8WzGpMgCB7lzV n0L8OwjNZQOBGRe00sv15ypoClLK8Mf1lfcaRpWFVoR9MkhhltMEEARs8EdCP6aSJoRp5LYNgveTRxWJ HgGALtZ7FvCSMjMG2IrYx5LVXnZn8QwYY7DEOjG73b QB5EZjHwB3MEXCNnTQW9GPSxIyCPEf1+NAsuvMQyGM5BPfrE+///PwMYBGRUQBADbvAfDECKEyqIV4+s DTayfP2cHs3CFnQcnj+hoYFE/xaQqJ64+ELWghQFHqjRgTV+GEbnkgppG3jJXiozq5pvY9Yz1uPB6EDa HggiIiJAuhKw+KBiPRHNH9c2RNqprhHzlYNvGT1ZNy SbQZ2isr7IHfFcTRAmJhqYIdqsDZpjeaTlRpyYWsBmZGMmMgwKVum2BRroFU6Nzy2fE9N8MYpeNWAPF7 KzlSXbFZ5bA1DRQ5ivEFoeZu5WScTaC8NwggKoMIddR9RaQIlwLIQDKEveJQCaN4WcSVJiPWCqOn4TWB YyXL1RYtNfJDTsCPK+Nf0QXYGnKW2pzqPmdGM0OQAj wE9jFFWkAEKbBAZSBdQaCFAxfR3wVAHlWuAoOJQCCsRbLZHqzS9qLqFvRnMhXZGIKkSlGZKemT8zDrBf FCHjCFPGYuOxEPLipH7hPMOcOFKwRFCJItRgYLVtzI5tAZHiGMYzDJK+Lx2FBLStAMo9M7X1DTNpJNv8 R0TZC8IIXJDqELvwZHqyJHBgFZu3T7A4CDYpR8SPH9 Rhcmtlbj4+HO2FO94APUTeMHm3W4M1mGMdX3S4mIkXuLE5DL1DAH7BsEt4gLBmnC3+PW4XF2PUArXrVA i8T7N2bVYcW6U3iDoQcWQ4WL6SNP3MsGHjLXXdllVlWa3xN5BUXJrCEcAOWMU5MZ0TnQUpIC3VyGOOH7 JenWGlYw5iEFvktBFhhS0pXw6kXRhjPK9LYlYHPPpK LXC3KM1FkKDeKC7MkGTIV4PnnEGiFg4zXZkydKZwab0+GL7AYHKuUv2DNs8+DQplbmRvYmoNCjIyIDAg c3UwQYg1DD9WEJ3sbUkeHSS7Al7WqJU3xMSjH9lUUW9UvCGaV84twBFiUHUjZn5JTjG6cwIspE0DRN03 uFJwh8H6JYVcD3omBQwkg45yDRozCQyYLY9tEBXUMH xqJXgnDFX1KdNfxzitSCItZa5OYbOxIRq4nN0apAE5RTS7QodqdFWiEXjxTuZtMsUtLbU5iOhxrsd7MM lnLE4xOWktwzmpMJOsYip+AIvcLSGzWHQvYpkHFEBwfD9gfuM8chMyBDqgsUKmTs2rh2g4YnmxAz3kXa 7hXFd0DfLwGiCgZCKcVu9kqV43PIgggyFoOc0JDxTt VVJ6H7AhNcfHXAR+UOjcDRvtxCs7rIRlENRsXa2KTTYaQRKiTVHuNDIdZRQmAJPwKKDhNTBiFWYfSZOc ICAgICAgICAgICAgICAgICAgICAgICAgICAgICAgICAgICAgICAgICAgICAgICAgICAgICAgICAgICAg NZVaNMUfTKOuEN9BTKTlSUNmFVPhYJLbSECzPRBsJD AgICAgICAgICAgICAgICAgICAgICAgICAgICAgICAgICAgICAgICAgICAgICAgICAgICAgICAgICAgIC WdSSJbWIOjMXJdUDQzZOLzULRjZO4JTFIqAOZdADOhVLQeIFUeXRFyKTCgSUOrBBTdJUQrSMNqSIJsRD AgICAgICAgICAgICAgICAgICAgICAgICAgICAgICAg BQHfHWJzRCNhFJWfNXFxOVBiZXQfDHBsKAIrRMFeJR0WJDQmYLWiVQYuETKwPBNyIXBaGXFaHAQnVRTd ICAgICAgICAgICAgICAgICAgICAgICAgICAgICAgICAgICAgICAgICAgICAgICAgICAgICAgICAgICAg NCDmRXYpJRQpOJLkME5AGCOmIYIvSEQfNVUjAMXeWG AgICAgICAgICAgICAgICAgICAgICAgICAgICAgICAgICAgICAgICAgICAgICAgICAgICAgICAgICAgIC OvHDXnUKLzWLMsBVLiKMNuJHGfDOGwVP4PQGClNGKmPXJbGHZmDRKsIVDrLHIlJFXmYWEbYGOhURLzML AgICAgICAgICAgICAgICAgICAgICAgICAgICAgICAg BLWuMZMaZHEhBFFyGJOrYBWmIXNcBTUwVWGhUPYfWIKuOZ5MIURaFUQtMRRcCQQjEMTcXWRpZRHsCPIp ICAgICAgICAgICAgICAgICAgICAgICAgICAgICAgICAgICAgICAgICAgICAgICAgICAgICAgICAgICAg HVSwXTEuWUMyXCYfHWJzSM4VMAAyLPXhQJAcTQFkRT AgICAgICAgICAgICAgICAgICAgICAgICAgICAgICAgICAgICAgICAgICAgICAgICAgICAgICAgICAgIC KsTQVnNWKtQCSgYAWdNYCaUHYcZSXkPVSyCK0TGBQnSWNlQBFuBEViHRCcOZQoICPpYWBbYHQnQYFhYD AgICAgICAgICAgICAgICAgICAgICAgICAgICAgICAg NFIqMQRjKUVdXFMjAWKfEBDfDFFtHHDbOYCoTZWrKFLdVYWnFT5KURGvYOFgLGMnJQOnVQYaBYPiJDLo ICAgICAgICAgICAgICAgICAgICAgICAgICAgICAgICAgICAgICAgICAgICAgICAgICAgICAgICAgICAg MFPxMDYaMBZcPXTeYTSeDZAvJF3KNN88bKDdl2S8VL LfVF5hzfp/Qd6GSFkcwrKkyPWcXD7BSbGrRW6ipy6NVrFaEI4yam5UNHsIUyLnM7O6gLKuHWDnUYFNVw BjL56pZRmqEn24ZMhpDMLjSvVlVLx3Oi3VFlXyA4cdWXOlVgQ9ZQOjYcBlKEjvOJ3Oc3NthXAoMWf+Pg 7QAI6jr6GgARjeNtTlPY2ozp3LGSvNAjLqD9T3cTXp T1U8NFtdYj6UIJUtIZDdBnFmYBZOVJmpOE9FAW4thcU0WK7IyJDrQNYaRXUmhGKxQCq5R64tcNRzSTbe FI5PGJP+Buffy+Wj8HLTRnWHCgCEIgCnZoGHETMhFbY45jpRJcZJBiADMhGYLhKx7IYRJtO3TimtSexCkw avCcLQPsPLUYIU7DUSlypfOmsUKgcRhgCB71kOgvBY 9NTz5BZeXxTA0nzf3AfNBtLv8BXVEnUQ3VTEWvHSLmMLYpSDF5SPRoKfTdMHguCYXdTOQfEZH1WQKzFT DyBB5TYkFdDTVdINc1EmQuKDIcXWIrhs3YDMKzZZIcOFN8XOHnSYMnGUAnLEttOHJgIRSpAYynXRVyBD XrSY6EPzJmXCHpHXY1PmQqUXQqZEKudf8NNHSjBUBp Orp7PTZzXYEeFKWgPIzhGBZjWABqGDB6FIZrRSMdQG7MEvVnTHLfXHWrPnLcCATuJARhyj0ZNXHwVAQb CIFzTQMtXFXcUZQxCGcpPIYlZBB2BDRqIJBxRBJxJA2PAeYuOWVxFBPqNmJjRQAnSIAgun5SWPZgMFTz DLR1HCEpIQCnJIIcCLraQJDmHSW4FBK2GALbEGJiRD 6SVnDeYNIuADV6OSNnLPYpNJVzwr6KLKDxAPKnYdm0GMSpZHKeLWNfEAtoZXVvUSM3MjC4SFPcQXPnHF 1LQwIcUQEmFYg8WSMsNXQjGOVmvb5IHDGdEBDyMst2TGYxDORpCDWxUPlbXZPtXUF4GEYlSEAaQTBxZU 5BSxIlGGHrMLxvYJXaCSCsTXPwpq7QRQUhNAFgKBC4 RiCiDJJtFMNjFBphIFIjOTW5HBC9GMQbAPNkPZ5BFlQiVHTkCRN2DVKaGIZaCUUzms2QhIAppDyhfp1Q BBqFZn9ZgAezYHL9OMflRx5naGReDdIhOEMMGn0GywEhCWRfLWMBAUxzRPSwDAJeBZRwJwT3BEWbOyF3 ALe5Csk3J5SkKOJ0O6O7PGR5KfB5YqI7EaI4ErawJT KkERKiBxQeDRAiEQR2OtvjTkL1YNb+BH3tIQy+Sy4Qx9FqrqF4lbQfXNwtADz7JI3IEYPWJ0VYVq== ID Date Data Source [id number] 10/19/2020 10:09:58 AM EDT [facility] Name Value Range Interpretation Code Description Data Kaela rce(s) Supporting Document(s) &PDF [facility] HHOFDw5lTqENWwAu48/QOBtsTVNgn2HpYUkhNHn7IVqvRNLoI0ItjIuxLX5TYmDRZ0ztQG7WPxZZCU8o oRX [file] RmlsdGVyIFsvRmxhdGVEZWNvZGVdDQo+Nk8Wu3VdQVYkYJdYxPFzDNDzGmGDILVk/5+HxBV++f//printing table worker+ 834tWURjP6J4FIu+GuQ2BhAB/pPPS1SSb+n//09oMYzRYQojOJ3jjP8M5C09xsqgQZQh7tY9Bl+BAr0+ J/+lQwX8f/8Hg3/JDYD8j8WYyAnSG2UFF3wHq/eaW9 9acM9nGCSGHC4EYE1YAN4dy2XoIUPnYLnkslRmVlzSYjYjCSXfx4FmTYt7OO5UKXZiQWsxGI1UZ1PxHK O7M6L0AeQ3hXXrOJ0zF2KeLvIaUZ2iwGx6F5CeoAVOGSZQh63ot47zjgZnQX2Hr9fumfKhEJCrP5Cwpo enIOYSKh8HaKJ9kOOsWg2FSZvidSTtWJWfWKXeG8Wb CMVnXN9QvEm7YZIcCa3EdVJ7EGDcK31bFV0XNbZzY5UVNHPjYBKzJLBoDySNAq3+RKdyxGWyBM9HOarS +///PwMYBGRUQBADbvAfDECKEyqIV4+zUYoinJ9kOa4URrDler+hoYFE/xaQqJ64+ELWghQFHqjRgTV+ IWieitgyN6yHPvler7ehK4Es5dJP5REiMkawVtLAsx Kw+UCjSZJDI1m3VYuoztZwqCGsZA7MRqKcFS7sch0PUuRvKZTqXhbJIalfXJzuqwKhMkuXMuLrYCIhCy dSDsj7FZjnGD7Npj5dI6G8WMbeCBMQY4CoxOEjAJ5wZ9UEK3jrWTqyJo4DYpXeQ6RiecLrUSufW5WiOM imGWTJYXcxHBRjM8XyCJEuZAPjRr9KIULwPQ9JZnVd XFZeMEWAFpNuVBLsYpAlTHdnGFODSp6WPuQxH8wEIcsaC3RoFQmwC0vvLzAgXLhhWPNZNTybJURiT2es MkBdKMfsLLDAJYguLOEdF9rqRmFeWfElYTQOYQyaMCTaH4bcLwLiPbQnEYBVONtuNECgY5myNnLmCoMo AMYOUNwtDBItJ8pzXkZmSlJvAUGRCr2TExPtK2C1kY bCoOC4BOW8GF8HOyEGXyWfFLm4V0W5dPWlX2X5hIcDzEL9HK7WBJ6RWOXyDK0+YrEvX4FGBLfMQRA9IB 0TmWIbLP8IbFZIL7RntWIaTk2yNOCqkTvrnUs+AkFoM9ESUSKTRHG7NB9IyAUiVU9MyXCRY1MmmQJfIa 1eLUewAbQnPX6aWS3+UA0FTQRGRoMQBmNbABafYKza RLEiXOs6P0E9UDWaK1VJE6S4Q7z0b8azya6+RC3WKUIwJ0IIJOYZNhYyJOwrBNmuXKVlBMg6Q0C6NHXz Y5NNH7yeC6c6PN9+PiANCiAgID4+DQo+Ag7GRO6tg4HpQXleQYSaVU5pip8HULvnILMjL7EaPGOwVTaz V0WjaTyrYO8MJGfbBCxoOQ8OBLRdYOB5XP8+DQpzdH RlXX7YLtu/pPLiI9fpvIEqNDzwod5a50s/BhRkDE1rEaFWSJ2wW1XsvTy8dkVKdt1AH8ygBjivQw7+DQ elSVv0AsnnaQ7peUDphRo9aTA1ju2oIu1fVMisYQzmzQ0wsnC9qT2iPSAlWeP3wsF1pXA5KN3lWo8ZGA ZoTXtxDIL4OrRQNRodcG5oUeXgZt0hoUA2tNzyM3z7 ol51Re1eeujyPAu2KA1fIt6qZe7cFHSlu9ejyUP2VK7jAlx+HVfmAZMoUY8kIGA8XjQKWm0QNPK0D9j3 dR1huXT3RI0CStZaGEOgPDUlJPHzWTTwHLYyEIYzFTWpWLDnGMXfDROdDFCeGQKePFRzFCAvNTWkTQFi ICAgICAgICAgICAgICAgICAgICAgICAgICAgICAgIC AgICAgICAgICAgICAgICAgICANCiAgICAgICAgICAgICAgICAgICAgICAgICAgICAgICAgICAgICAgIC AgICAgICAgICAgICAgICAgICAgICAgICAgICAgICAgICAgICAgICAgICAgICAgICAgICAgICAgICAgIC ANCiAgICAgICAgICAgICAgICAgICAgICAgICAgICAg ICAgICAgICAgICAgICAgICAgICAgICAgICAgICAgICAgICAgICAgICAgICAgICAgICAgICAgICAgICAg ICAgICAgICAgICANCiAgICAgICAgICAgICAgICAgICAgICAgICAgICAgICAgICAgICAgICAgICAgICAg ICAgICAgICAgICAgICAgICAgICAgICAgICAgICAgIC AgICAgICAgICAgICAgICAgICAgICANCiAgICAgICAgICAgICAgICAgICAgICAgICAgICAgICAgICAgIC AgICAgICAgICAgICAgICAgICAgICAgICAgICAgICAgICAgICAgICAgICAgICAgICAgICAgICAgICAgIC AgICANCiAgICAgICAgICAgICAgICAgICAgICAgICAg ICAgICAgICAgICAgICAgICAgICAgICAgICAgICAgICAgICAgICAgICAgICAgICAgICAgICAgICAgICAg ICAgICAgICAgICAgICANCiAgICAgICAgICAgICAgICAgICAgICAgICAgICAgICAgICAgICAgICAgICAg ICAgICAgICAgICAgICAgICAgICAgICAgICAgICAgIC AgICAgICAgICAgICAgICAgICAgICAgICANCiAgICAgICAgICAgICAgICAgICAgICAgICAgICAgICAgIC AgICAgICAgICAgICAgICAgICAgICAgICAgICAgICAgICAgICAgICAgICAgICAgICAgICAgICAgICAgIC AgICAgICANCiAgICAgICAgICAgICAgICAgICAgICAg ICAgICAgICAgICAgICAgICAgICAgICAgICAgICAgICAgICAgICAgICAgICAgICAgICAgICAgICAgICAg ICAgICAgICAgICAgICAgICANCiAgICAgICAgICAgICAgICAgICAgICAgICAgICAgICAgICAgICAgICAg ICAgICAgICAgICAgICAgICAgICAgICAgICAgICAgIC AgICAgICAgICAgICAgICAgICAgICAgICAgICANCjw/fSBkO3jvxCQxblD7Z3szJf6IPj5BSY5wv6MjAM OgSQjwukNzQnaQGdTcPHMvZwcRDbv5DPgqMH9EdUHbH9GfG4AaWRajZE2JMBEtVTPdxIAqODLeQPKdEw Z8CZZhZDnxBI3YtDBeKEhdVTWhWFLuTI8JPSKuO153 zfKmVL9OXp1VXxYwLX1nwb3JRrIqEETkVseTMsi2UOcbUM5WaIGhX2CvaYQbf8aVRuAtQ7URXGS1GJCo Vj9DARLbWbNhLLFmWDrqOD8wTIWzPLZUiZnopfW3DO0LOQ4fpyGiIL0TVoTgWj8mOo9SQgSsO3PfA1Eo VCPrIOWNAWihQN4GNGEjXZS2RCZkGBCzHCKQZkHzY3 3cZU8VJ1Ddh92aZtW0FMNmQlBiJDrhMP03fOefuxWwxKQekKcvKV4VUz6+DQplbmRvYmoNCnhyZWYNCj FcJbrUJuHsIDZgJYLhAEChBcF5DkIpCx8TKTYpHVGnEBAlCtAmUDVbMHXzWNiwPEVdNPKcBhV7AJUyYU JqQM5SGkAaKJBuXSNqQAUjZSLjPDPggk6LRARaPCTw MTL6UNXtEZTjZQLrYQiuZRKnBVGmYTM2HVVtOZOqNV5UFkUuKVIbDCGxImGbIFRdOZXyhc0EYCJyETIb OCJwVWHiFRTvYFOaETigEFJeFIB2TyQ1MXPhQCFwLC6MLhKnUDMbIGYyYPCzRRPvUYCetu1JARYyLFIq BMG4PVSsVDKsHXAiQOkwOYMrIMO7MOB2UORbIEDgSQ 8ZUtCvITFpSPB7CFMzEXErIYCpso6SYIDcINJzEgijYBHeYICpKRDxJUsrSKYqRPB8JFNmCFTyZWQtDC 1JNhNtKJWnSKqgGRpnLDYrBEQyqe4TJXQaNVWzXWE1BCWnPLJwKFMlYRlhLNRnKAI5NsK6BSWtNVDpKV 9PMwAhNQTuJTs4GfDxAUMyCNBrev8BRGDfABMxYAu0 GdSnLVTkDAEzXWpkVWAhLLN9AJjkCFLhSFMtMW9PCqZxIHSgKPskSMGbVMImJVEuor0EWGXaUGBhCRF6 FUQjENJgEECuUOwlQNHhUOP0FRtkOWWoYQUqJU3CYwAoMSIhBWIuFQVsXRUtKAVocm1WQYJgMPRdBHmk RPRsRDZaUGTtJGspPBHjKUTdKDR3UBKiKDVfET5ZWx XbDMviDJPIRae7NXplQ8d5RQZkPo3FA8Rnj7HlKoPyKLQCVTcxYX9wlbQyJOVxPg5GO7nKCey2CpG9ZJ FzEqTgLzRxGQAaSuEgWTAaWuKmRKT4WlI4Dh2cIPedUaz7BuDyGUYtX0YgHXDaYUR2NBVmYBO7ZsovPg mfSwAhVI5QHb4TEzW4BDT9mQAlGg1LVZRySnZABnNoPB5BWJm= ID Date Data Source [id number] 10/19/2020 10:07:17 AM EDT [facility] Name Value Range Interpretation Code Description Data Kaela rce(s) Supporting Document(s) &PDF [facility] CPECXp8sGwQUXaUm95/UFDojDEWrm4LlNRhySVj9JIxpBIXaP7LivZpkUT5ECcMRX2gqPV8XPhHTDI3m oRX [file] IdWvJKta5Ig5ZghiEgPX/wt8WeE0016nFZObUIEeFRnh8/liRt6u7mFChREVYhYDBPGpVslUGNZBg/josé luis [file] ICAgICAgICAgICAgICAgICAgICAgICAgICAgICAgIC AgICAgICAgICAgICAgICAgICAgICAgICAgICAgICAgDQogICAgICAgICAgICAgICAgICAgICAgICAgIC AgICAgICAgICAgICAgICAgICAgICAgICAgICAgICAgICAgICAgICAgICAgICAgICAgICAgICAgICAgIC AgICAgICAgICAgICAgDQogICAgICAgICAgICAgICAg ICAgICAgICAgICAgICAgICAgICAgICAgICAgICAgICAgICAgICAgICAgICAgICAgICAgICAgICAgICAg ICAgICAgICAgICAgICAgICAgICAgICAgDQogICAgICAgICAgICAgICAgICAgICAgICAgICAgICAgICAg ICAgICAgICAgICAgICAgICAgICAgICAgICAgICAgIC AgICAgICAgICAgICAgICAgICAgICAgICAgICAgICAgICAgDQogICAgICAgICAgICAgICAgICAgICAgIC AgICAgICAgICAgICAgICAgICAgICAgICAgICAgICAgICAgICAgICAgICAgICAgICAgICAgICAgICAgIC AgICAgICAgICAgICAgICAgDQogICAgICAgICAgICAg ICAgICAgICAgICAgICAgICAgICAgICAgICAgICAgICAgICAgICAgICAgICAgICAgICAgICAgICAgICAg ICAgICAgICAgICAgICAgICAgICAgICAgICAgDQogICAgICAgICAgICAgICAgICAgICAgICAgICAgICAg ICAgICAgICAgICAgICAgICAgICAgICAgICAgICAgIC AgICAgICAgICAgICAgICAgICAgICAgICAgICAgICAgICAgICAgDQogICAgICAgICAgICAgICAgICAgIC AgICAgICAgICAgICAgICAgICAgICAgICAgICAgICAgICAgICAgICAgICAgICAgICAgICAgICAgICAgIC AgICAgICAgICAgICAgICAgICAgDQogICAgICAgICAg ICAgICAgICAgICAgICAgICAgICAgICAgICAgICAgICAgICAgICAgICAgICAgICAgICAgICAgICAgICAg ICAgICAgICAgICAgICAgICAgICAgICAgICAgICAgDQogICAgICAgICAgICAgICAgICAgICAgICAgICAg ICAgICAgICAgICAgICAgICAgICAgICAgICAgICAgIC IrJLMpXNXbTSVwMOMtEFMgRXBhSXAzMAVoLSEzNTIpVZMmEIEcNVJwVDq2R6xkKUVzHTKuCA1lPMg2Kn 8+VZxGAlNtXCC7xyBgeW6BLP8cr6WiGSniTJDvl3LiEBs2WZ3ILIWmBCpgQX5VPQidiv4SURQlJYDrfH XAx6yaDkMgSPS6XKNcSrzvOC9WAVVoM8rwafAwAQOn LFSRIYmsPQWLHH9UIsBhG7IpdI39ONQJRb8+AHawoaXlHtyHMtN9UPJqg3EjWJz4CT8HXJKqPZobFU2B DJMxaU6cQRsvIW0JYyLmDqBjHAOWQzZmN42zbZZiXTh6F6GnByMdDRNvKdqyBFGbIYqjAhJeDOZpKbZq DQogID4+ID4+JIijMH6AUVfrasLrGLDqKj6IIZPpMX Q5ELQcjATvUnaeFYJXLLwfCB2UkEVlFRV9pN3qELcfIINvHPPxA1xXSvKyhKnnFB35gWdljpRdtQRzBO o+Gi9KND3pw1NgBUy6toZkDFiaBKK3ECvsINEyGGWmTIWlSHR5BCD7CINVJhEiNUDzOTCoTVvsIIIcPS Qijv6MYMVtHEChWxk2UbTfHWArHCVgLNgrZIZbESF5 Nrt5BKTdRUUsBR5UWzDlTVHcNIOeHVLdIUGyBQHkmd6NMRAzFYDfJeK1ISJfCNGsWVAdPAcsMKGwGIVu LMAsZWJaBZMgGS6NXeHfOARiQJF9TNWhCQByUMZfgv8CUACuRMWnIhhoDrErFCLqZUYeMHmvIWEqJUJ2 FbS7ISOpTFQfHE0XHoVqYSSqXYa5ZiKgRWJiTCLuov 1XSSShJFDoBTQ8CtWkYWNsBKBwJFnyISWxBLS8DWMmHIPfFGXvKB9NYoMoKHWnQIcgWJGjPGAvVHHwae 3IMGTrXALiTKT4OBCiWSRaASLrWKxoODMtUPIyCxC0BMRsGOYkCV7AVcRlRMRpPYP3MMWeQQLtLNFubz 0KMDAwMDAxMDczNSAwMDAwMCBuDQowMDAwMDExNjkz VVCtIZQtZT3STeCeAGXoJDM1FJLzRLEmBGIvao0RYTRlXGUsNeJ2XpCuARBgNZSvYCziMYSoXIQbSip6 PEFtEGPsAW4CNeVkEMUuPZW2YVXiCTTdEOIypy9PPSHmFYYaTzAnKEUgOJMuVEBwOHycCPPdYWLcBkYk FQQsXMRgJJ8AMmHeXYXhTBR4HuEkZCPwYQDgta7ABP GxXPRpDmgxFNTfATViVJAdVQnmWTFxORM2RfH3XTGkHRVaCH9PZvDkSVAiQGO3IOZtMHRbCCCesy9HtM UuzUzmgq3GNGsNEn1MfBnzIYP8DVlhRh4piRHoSTZkTTMYOe9NsbRuSBSySOYVEIhlADCaOAJdOKhoIT ArRYX4HJVfKNDjDiL0QzZoNHilVNNtKMVcSbV2MDXm S3FsCtDbEAeqQPPnGcIxLOOiWMRvT3LtSAPgLKK+NL3nUGx+Th8An6QehtZ6mgYhCEeoNQk1MF2RYDJU T0YNCg== ID Date Data Source [id number] 05/26/2020 12:00:00 AM EST [facility] Name Value Range Interpretation Code Description Data Kaela rce(s) Supporting Document(s) SARS coronavirus 2 RNA [Presence] in Res piratory specimen by YAN with probe detection NEGATIVE [facility] This lab was ordered by Sanjana Sprague and reported by [facility]. ID Date Data Source [id number] 05/26/2020 12:00:00 AM EST [facility] Name Value Range Interpretation Code Description Data Kaela rce(s) Supporting Document(s) Carestart Rapid COVID Antigen Test Negative [facility] This lab was reported by Sanjana agosto. ID Date Data Source [id number] 02/18/2020 12:00:00 AM EST eCW1 ([facility]) Name Value Range Interpretation Code Description Data Kaela rce(s) Supporting Document(s) Microalbumin/Creatinine [Mass Ratio] in Urine 177.0 CREATININE, URINE eCW1 ([facility]) Albumin/Creatinine [Mass Ratio] in Urine 6.7 MALB URINE SIEMENS eCW1 ([facility]) Microalbumin/Creatinine [Ratio] in Urine 3.7 0.0-30.0 JON/CREAT RATIO eCW1 ([facility]) ID Date Data Source CBC with Differential 02/18/2020 12:00:00 AM EST eCW1 ([facility]) Name Value Range Interpretation Code Description Data Kaela rce(s) Supporting Document(s) 5.12 4.00-5.40 RED BLOOD COUNT eCW1 ([facility]) 5.1 4.0-10.0 WHITE BLOOD COUNT eCW1 ([facility]) 85.5 80.0-96.0 MEAN CORPUSCULAR VOLUME e CW1 ([facility]) 14.5 12.0-15.5 HEMOGLOBIN eCW1 ([facility]) 43.8 36.0-47.0 HEMATOCRIT eCW1 ([facility]) 33.1 32.0-36.5 MEAN CORPUSCULAR HGB CONC eCW1 ([facility]) 28.3 27.0-33.0 MEAN CORPUSCULAR HEMOGLOB IN eCW1 ([facility]) 40.4 24.0-44.0 LYMPH % eCW1 ([facility]) 48.9 36.0-66.0 NEUTROPHILS % eCW1 ([facility]) 286 150-450 PLATELET COUNT, AUTOMATED eCW1 ([facility]) 11.7 11.5-14.5 RED CELL DISTRIBUTION WID TH eCW1 ([facility]) 1.4 0.0-3.0 EOS % eCW1 ([facility]) 0.8 0.0-1.0 BASO % eCW1 ([facility]) 8.1 0.0-5.0 MONO % eCW1 ([facility]) 2.5 1.5-8.5 NEUTROPHILS # eCW1 ([facility]) 0.0 0.0-0.2 BASO # eCW1 ([facility]) 0.1 0.0-0.5 EOS # eCW1 ([facility]) 0.4 0.0-0.8 MONO # eCW1 ([facility]) 2.1 1.5-5.0 LYMPH # eCW1 ([facility]) Procedure Social History Code Duration Value Status Description Data Source(s ) Alcohol intake 12/04/2020 12:00:00 AM EDT Ex-drinker (finding) comp leted Ex- drinker (finding) [facility] Smoking 11/02/2020 12:00:00 AM EDT Never Smoker completed Never S moker eCW1 ([facility]) Smoking 11/02/2020 12:00:00 AM EDT Never Smoker completed Never S moker eCW1 ([facility]) Smoking 11/02/2020 12:00:00 AM EDT Never Smoker completed Never S moker eCW1 ([facility]) Alcohol intake 10/30/2020 12:00:00 AM EDT Ex-drinker (finding) comp leted Ex- drinker (finding) [facility] Tobacco use and exposure 10/19/2020 12:00:00 AM EDT Never used co mpleted Never used [facility] Smoking 10/19/2020 12:00:00 AM EDT Former smoker completed Former smoker [facility] Alcohol intake 10/19/2020 12:00:00 AM EDT Ex-drinker (finding) comp leted Ex- drinker (finding) [facility] Smoking 08/23/2020 12:00:00 AM EDT Never Smoker completed Never S moker eCW1 ([facility]) Smoking 08/23/2020 12:00:00 AM EDT Never Smoker completed Never S moker eCW1 ([facility]) Smoking 08/23/2020 12:00:00 AM EDT Never Smoker completed Never S moker eCW1 ([facility]) Smoking 08/23/2020 12:00:00 AM EDT Never Smoker completed Never S moker eCW1 ([facility]) Smoking 07/27/2020 12:00:00 AM EDT Never Smoker completed Never S moker eCW1 ([facility]) Smoking 07/27/2020 12:00:00 AM EDT Never Smoker completed Never S moker eCW1 ([facility]) Smoking 07/27/2020 12:00:00 AM EDT Never Smoker completed Never S moker eCW1 ([facility]) Smoking 02/18/2020 12:00:00 AM EST Never Smoker completed Never S moker eCW1 ([facility]) Smoking 02/18/2020 12:00:00 AM EST Never Smoker completed Never S moker eCW1 ([facility]) Smoking 02/18/2020 12:00:00 AM EST Never Smoker completed Never S moker eCW1 ([facility]) Smoking 02/18/2020 12:00:00 AM EST Never Smoker completed Never S moker eCW1 ([facility]) Smoking 02/18/2020 12:00:00 AM EST Never Smoker completed Never S moker eCW1 ([facility]) Smoking 02/18/2020 12:00:00 AM EST Never Smoker completed Never S moker eCW1 ([facility]) Smoking 02/18/2020 12:00:00 AM EST Never Smoker completed Never S moker eCW1 ([facility]) Vital Signs ID Date Data Source UNK Name Value Range Interpretation Code Description Data Source(s) Systolic blood pressure 124 mm[Hg] 124 mm[Hg] [facility] Diastolic blood pressure 76 mm[Hg] 76 mm[Hg] [facility] Heart rate 66 /min 66 /min [facility] Body height 162.6 cm 162.6 cm [facility] Body weight 96.163 kg 96.163 kg [facility] Body mass index (BMI) [Ratio] 36.39 kg/m2 36.39 kg/m2 [facility] Oxygen saturation in Arterial blood by Pulse oximetry 99 % 99 % [facility] Body height 65 [in_i] 65 [in_i] [facility] ([facility], ) 5'5" Body mass index (BMI) [Ratio] 31.6 kg/m2 31.6 k g/m2 [facility] ([facility], ) [place] body weight 125 [lb_av] 125 [lb_av] [facility] T ([facility], ) Body weight 86.184 kg 86.184 kg [facility] ([facility], ) Body weight 190.00 [lb_av] 190.00 [lb_av] [facility] T ([facility], ) Body surface area Derived from formula 1.94 m2 1.94 m2 [facility] ([facility], ) Body weight 211.2 [lb_av] 211.2 [lb_av] eCW1 ([facility]) Diastolic blood pressure 68 mm[Hg] 68 mm[Hg] eCW1 ([facility]) Body height 65 [in_i] 65 [in_i] eCW1 ([facility]) Body mass index (BMI) [Ratio] 35.14 kg/m2 35.14 kg/m2 eCW1 ([facility]) Heart rate 83 /min 83 /min eCW1 ([facility]) Respiratory rate 18 /min 18 /min eCW1 ([facility]) Body temperature 97.8 [degF] 97.8 [degF] eCW1 ( [facility]) Systolic blood pressure 110 mm[Hg] 110 mm[Hg] e CW1 ([facility]) Systolic blood pressure 126 mm[Hg] 126 mm[Hg] [facility] Heart rate 64 /min 64 /min [facility] Body height 162.6 cm 162.6 cm [facility] Body weight 94.802 kg 94.802 kg [facility] Body mass index (BMI) [Ratio] 35.87 kg/m2 35.87 kg/m2 [facility] Oxygen saturation in Arterial blood by Pulse oximetry 96 % 96 % [facility] Diastolic blood pressure 78 mm[Hg] 78 mm[Hg] [facility] Systolic blood pressure 130 mm[Hg] 130 mm[Hg] [facility] Diastolic blood pressure 78 mm[Hg] 78 mm[Hg] [facility] Heart rate 50 /min 50 /min [facility] Body weight 92.987 kg 92.987 kg [facility] Body mass index (BMI) [Ratio] 34.11 kg/m2 34.11 kg/m2 [facility] Oxygen saturation in Arterial blood by Pulse oximetry 98 % 98 % [facility] Body weight 213.2 [lb_av] 213.2 [lb_av] eCW1 ([facility]) Body height 65 [in_i] 65 [in_i] eCW1 ([facility]) Body mass index (BMI) [Ratio] 35.47 kg/m2 35.47 kg/m2 eCW1 ([facility]) Heart rate 85 /min 85 /min eCW1 ([facility]) Respiratory rate 18 /min 18 /min eCW1 ([facility]) Body temperature 98.6 [degF] 98.6 [degF] eCW1 ( [facility]) Systolic blood pressure 118 mm[Hg] 118 mm[Hg] e CW1 ([facility]) Diastolic blood pressure 78 mm[Hg] 78 mm[Hg] eCW1 ([facility]) Body weight 215 [lb_av] 215 [lb_av] eCW1 ([facility]) Body height 65 [in_i] 65 [in_i] eCW1 ([facility]) Body mass index (BMI) [Ratio] 35.77 kg/m2 35.77 kg/m2 eCW1 ([facility]) Heart rate 87 /min 87 /min eCW1 ([facility]) Respiratory rate 18 /min 18 /min eCW1 ([facility]) Body temperature 97.7 [degF] 97.7 [degF] eCW1 ( [facility]) Systolic blood pressure 130 mm[Hg] 130 mm[Hg] e CW1 ([facility]) Diastolic blood pressure 84 mm[Hg] 84 mm[Hg] eCW1 ([facility]) Body weight 202 [lb_av] 202 [lb_av] eCW1 ([facility]) Body height 65 [in_i] 65 [in_i] eCW1 ([facility]) Body mass index (BMI) [Ratio] 33.61 kg/m2 33.61 kg/m2 eCW1 ([facility]) Heart rate 85 /min 85 /min eCW1 ([facility]) Respiratory rate 18 /min 18 /min eCW1 ([facility]) Body temperature 98.1 [degF] 98.1 [degF] eCW1 ( [facility]) Systolic blood pressure 126 mm[Hg] 126 mm[Hg] e CW1 ([facility]) Diastolic blood pressure 78 mm[Hg] 78 mm[Hg] eCW1 ([facility]) Patient Treatment Plan of Care Planned Activity Planned Date Details Description Data Source (s) Metoprolol Tartrate 25 MG Oral Tablet 12/04/2020 12:00:00 AM EDT [facility] Metoprolol Tartrate 25 MG Oral Tablet 12/04/2020 12:00:00 AM EDT [facility] Loratadine 10 MG Oral Tablet 09/23/2020 12:00:00 AM EDT [facility] Loratadine 10 MG Oral Capsule [Claritin] 08/23/2020 12:00:00 AM EDT eCW1 ([facility]) Loratadine 10 MG Oral Capsule [Claritin] 08/23/2020 12:00:00 AM EDT eCW1 ([facility]) Loratadine 10 MG Oral Capsule [Claritin] 08/23/2020 12:00:00 AM EDT eCW1 ([facility]) Loratadine 10 MG Oral Capsule [Claritin] 08/23/2020 12:00:00 AM EDT eCW1 ([facility]) Metoprolol Tartrate 25 MG Oral Tablet 08/07/2020 12:00:00 AM EDT [facility]
--- OUTSIDE RECORDS SUMMARY | 2021-01-25 15:42 | CCD | Continuity of Care Document ---
Author Author Ida WONG MD Organization Unknown Address [address] [facility] [address] [place] [address] Phone [phone] Care Team Providers Care Chemical Applicator Name Role Phone Alie Schaffer P.A.-C. AUTM [phone] Central Scheduling AUTM [phone] Gabriela Wallace D.O. AUTM Problems Description No [...] lb BMI (Body Mass Index) 31.6 kg/m2 [place] Body Weight 125 lb Weight 86.184 kg BSA (Body Surface Area) 1.94 m2 11/25/2019 2:24pm Height 65 inches 5'5" Weight 190.00 lb BMI (Body Mass Index) 31.6 kg/m2 [place] Body Weight 125 lb Weight 86.184 kg BSA (Body Surface Area) 1.94 m2 Results Description No Information Available Procedures Date Code Description Status 11/07/2020 81737 Office/Outpatient Established Lo w MDM 20-29 Min Completed Medical Devices Description No Information Available Encounters Type Date Location Provider Dx Diagnosis Office Visit 11/07/2020 11:10a [facility] Jimenez Wong MD E04.1 Nontoxic single thyroid nodule Assessments Date Code Description Provider 11/07/2020 E04.1 Nontoxic single thyroid nodule N soheila Wong MD Plan of Treatment No Information Available Functional Status Description No Information Available Mental Status Description No Information Available Referrals Refer to Dr Reason for Referral Status Appt Date Jimenez Wong M.D. Scheduled 11/07/[address] [address] [phone]
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
[2021-01-25] MEDS ORDERED: HYDR-3713 PO (17:59)
[2021-01-25] MEDS ORDERED: LIDO5DIS41 TOP (17:59)
[2021-01-25] MEDS ORDERED: CYCL5TAB PO (17:59)
== END 2021-01-25 18:18 | disposition home or self-care (01) ==
LOC: M ED 12:01
DX: S39.012A Strain of muscle, fascia and tendon of lower back, initial encounter (principal); M62.830 Muscle spasm of back; X58.XXXA Exposure to other specified factors, initial encounter; Y92.9 Unspecified place or not applicable; Y93.9 Activity, unspecified; Y99.9 Unspecified external cause status; K21.9 Gastro-esophageal reflux disease without esophagitis; Z88.8 Allergy status to other drugs, medicaments and biological substances
CPT/HCPCS: 96372; 99283; J1885

== ENCOUNTER → 2021-02-01 | Outpatient (REF) | payer OTHER ==
[~2021-02-01] MED LIST changes: +CYCL5TAB PO; +HYDR-3713 PO; +LIDO5DIS41 TOP; -LIDOCAINE 2% 100MG/5ML SDV (FOR ANES.) As Ordered ONE; -MIDAZOLAM INJ 2MG/2ML VIAL (J2250 PER 1MG) As Ordered ONE; -ROCURONIUM BROMIDE 50 MG/5 ML VIAL As Ordered ONE; -fentaNYL 100 MCG/2 ML INJECTION (J3010) As Ordered ONE; -propofoL 200 MG/20 ML VIAL As Ordered ONE
== END ==
LOC: M LAB REF 19:40
PROVIDERS: ATTEND Family Medicine
DX: J02.9 Acute pharyngitis, unspecified (principal)

== ENCOUNTER → 2021-02-01 | Outpatient (REF) | payer OTHER | LOC: M SFHCADAM 16:23 | PROVIDERS: ATTEND Family Medicine | DX: J02.9 Acute pharyngitis, unspecified (principal); Z53.9 Procedure and treatment not carried out, unspecified reason ==

== ENCOUNTER → 2021-03-13 | Outpatient (CLI) | payer OTHER ==
--- NOTE | 2021-03-13 16:30 | REP ---
INDICATION: LOW BACK PAIN COMPARISON: 07/15/2016 TECHNIQUE: AP, lateral, coned-down views of the lumbar spine. FINDINGS: Three views of the lumbosacral spine demonstrate satisfactory alignment and lordosis without acute fracture / compression injury or subluxation. IMPRESSION: 1. No acute fracture / compression injury or subluxation. 2. No significant degenerative changes. <Electronically signed by Kel Mancia > 03/13/21 [id number]
== END ==
LOC: M SOG 15:07
PROVIDERS: ATTEND Orthopaedic Surgery
DX: M54.50 Low back pain, unspecified (principal)

== ENCOUNTER → 2021-06-13 | Outpatient (CLI) | payer OTHER | LOC: M LABSMTC 09:09 | PROVIDERS: ATTEND Internal Medicine Cardiovascular Disease | DX: Z01.812 Encounter for preprocedural laboratory examination (principal); Z20.822 Contact with and (suspected) exposure to COVID-19 ==

== ENCOUNTER → 2022-06-12 | Outpatient (REF) | payer OTHER ==
[2022-06-12 13:12] LABS: BASO # 0.1 10^3/uL (0.0-0.2); EOS # 0.2 10^3/uL (0.0-0.5); EOS % 2.5 % (0.0-3.0); HEMATOCRIT 42.7 % (36.0-47.0); HEMOGLOBIN 14.2 g/dl (12.0-15.5); LYMPH # 2.5 10^3/uL (1.5-5.0); MEAN CORPUSCULAR HEMOGLOBIN 28.9 pg (27.0-33.0); MEAN CORPUSCULAR HGB CONC 33.3 g/dl (32.0-36.5); MEAN CORPUSCULAR VOLUME 86.8 fl (80.0-96.0); MONO # 0.4 10^3/uL (0.0-0.8); MONO % 7.4 % (2.0-8.0); NEUTROPHILS # 2.8 10^3/uL (1.5-8.5); NEUTROPHILS % 46.9 % (36.0-66.0); PLATELET COUNT, AUTOMATED 324 10^3/uL (150-450); RED BLOOD COUNT 4.92 10^6/uL (4.00-5.40)
[2022-06-12 13:45] LABS: ALBUMIN 3.5 G/DL (3.2-5.2); ALKALINE PHOSPHATASE 76 U/L (46-116); ALT/SGPT 18 U/L (7.0-40); AST/SGOT 13 U/L (<34); BILIRUBIN,TOTAL 0.7 MG/DL (0.3-1.2); BLOOD UREA NITROGEN 13 MG/DL (9-23); CALCIUM LEVEL 9.1 MG/DL (8.5-10.1); CARBON DIOXIDE LEVEL 26 MMOL/L (20-31); CHLORIDE LEVEL 107 MMOL/L (98-107); CHOLESTEROL LEVEL 197 MG/DL (<200); CHOLESTEROL RISK RATIO 3.69 (<5); CREATININE FOR GFR 0.93 MG/DL (0.55-1.30); GLOMERULAR FILTRATION RATE > 60.0 (>60); GLUCOSE, FASTING 87 MG/DL (60-100); HDL CHOLESTEROL 53.3 MG/DL (>40); LDL CHOLESTEROL 118.9 MG/DL (<100); NON-HDL-C 143.7 MG/DL; POTASSIUM SERUM 5.1 MMOL/L (3.5-5.1); SODIUM LEVEL 141 MMOL/L (136-145); TOTAL PROTEIN 6.6 G/DL (5.7-8.2); TRIGLYCERIDES LEVEL 124 MG/DL (<150)
== END ==
LOC: M SFHCADAM 07:32
PROVIDERS: ATTEND Family Medicine
DX: Z00.00 Encounter for general adult medical examination without abnormal findings (principal)

== ENCOUNTER → 2023-02-20 | Outpatient (REF) | payer OTHER, MEDICAID ==
[2023-02-20 14:24] LABS: HEMATOCRIT 43.4 % (36.0-47.0); HEMOGLOBIN 14.7 g/dl (12.0-15.5); MEAN CORPUSCULAR HEMOGLOBIN 29.2 pg (27.0-33.0); MEAN CORPUSCULAR HGB CONC 33.9 g/dl (32.0-36.5); MEAN CORPUSCULAR VOLUME 86.3 fl (80.0-96.0); PLATELET COUNT, AUTOMATED 309 10^3/uL (150-450); RED BLOOD COUNT 5.03 10^6/uL (4.00-5.40)
[2023-02-20 14:55] LABS: ALBUMIN 3.9 G/DL (3.2-5.2); ALKALINE PHOSPHATASE 80 U/L (46-116); ALT/SGPT 16 U/L (7.0-40); AST/SGOT 10 U/L (<34); BILIRUBIN,TOTAL 0.5 MG/DL (0.3-1.2); BLOOD UREA NITROGEN 13 MG/DL (9-23); CALCIUM LEVEL 9.3 MG/DL (8.5-10.1); CARBON DIOXIDE LEVEL 26 MMOL/L (20-31); CHLORIDE LEVEL 106 MMOL/L (98-107); CREATININE FOR GFR 0.95 MG/DL (0.55-1.30); GLOMERULAR FILTRATION RATE > 60.0 (>60); GLUCOSE, FASTING 76 MG/DL (60-100); SODIUM LEVEL 140 MMOL/L (136-145); THYROID STIMULATING HORMONE 1.323 uIU/ML (0.55-4.78)
== END ==
LOC: M LABDRWAD 13:06
PROVIDERS: ATTEND Physician Assistant
DX: I47.29 Other ventricular tachycardia (principal)

== ENCOUNTER → 2023-06-04 | Outpatient (CLI) | payer OTHER | LOC: M RAD 14:31 | PROVIDERS: ATTEND Family Medicine | DX: R59.0 Localized enlarged lymph nodes (principal); E04.1 Nontoxic single thyroid nodule ==

== ENCOUNTER → 2023-07-23 | Outpatient (REF) | payer BC | LOC: M SFHCADAM 08:38 | PROVIDERS: ATTEND Family Medicine | DX: R09.81 Nasal congestion (principal) ==

== ENCOUNTER → 2023-07-23 | Outpatient (CLI) | payer BC | LOC: M ADAMS 08:58 | PROVIDERS: ATTEND Family Medicine | DX: R05.2 Subacute cough (principal) ==

== ENCOUNTER → 2024-02-13 | Outpatient (REF) | payer BC ==
[~2024-02-13] MED LIST changes: -CYCL5TAB PO; +CYCL5TAB4 PO
[2024-02-13 18:19] LABS: BASO # 0.1 10^3/uL (0.0-0.2); BASO % 0.6 % (0.0-1.0); EOS # 0.1 10^3/uL (0.0-0.5); EOS % 0.9 % (0.0-3.0); HEMATOCRIT 44.3 % (36.0-47.0); HEMOGLOBIN 14.8 g/dl (12.0-15.5); LYMPH # 2.5 10^3/uL (1.5-5.0); MEAN CORPUSCULAR HEMOGLOBIN 29.4 pg (27.0-33.0); MEAN CORPUSCULAR HGB CONC 33.4 g/dl (32.0-36.5); MEAN CORPUSCULAR VOLUME 88.1 fl (80.0-96.0); MONO # 0.5 10^3/uL (0.0-0.8); MONO % 5.8 % (2.0-8.0); NEUTROPHILS # 4.9 10^3/uL (1.5-8.5); NEUTROPHILS % 61.4 % (36.0-66.0); PLATELET COUNT, AUTOMATED 325 10^3/uL (150-450); RED BLOOD COUNT 5.03 10^6/uL (4.00-5.40)
[2024-02-13 18:28] LABS: HCG, SERUM QUANTITATIVE < 2.6 MIU/ML (<4.2)
[2024-02-13 18:30] LABS: ALBUMIN 4.1 G/DL (3.2-5.2); ALKALINE PHOSPHATASE 80 U/L (35-104); ALT/SGPT 17 U/L (7.0-40); AST/SGOT < 8 U/L (<34); BILIRUBIN,TOTAL 0.4 MG/DL (0.3-1.2); BLOOD UREA NITROGEN 10 MG/DL (9-23); CALCIUM LEVEL 10.2 MG/DL (8.5-10.1); CARBON DIOXIDE LEVEL 26 MMOL/L (20-31); CHLORIDE LEVEL 110 MMOL/L (98-107); CREATININE FOR GFR 0.91 MG/DL (0.55-1.30); GLOMERULAR FILTRATION RATE > 60.0 (>60); GLUCOSE, FASTING 88 MG/DL (60-100); POTASSIUM SERUM 4.8 MMOL/L (3.5-5.1); SODIUM LEVEL 141 MMOL/L (136-145); TOTAL PROTEIN 7.1 G/DL (5.7-8.2)
[2024-02-13 18:31] LABS: THYROID STIMULATING HORMONE 0.864 uIU/ML (0.55-4.78)
[2024-02-13 18:32] LABS: FREE T4 1.35 NG/DL (0.89-1.76)
== END ==
LOC: M SFHCADAM 11:45
PROVIDERS: ATTEND Physician Assistant
DX: Z00.00 Encounter for general adult medical examination without abnormal findings (principal); N93.9 Abnormal uterine and vaginal bleeding, unspecified

== ENCOUNTER → 2024-02-16 | Outpatient (CLI) | payer OTHER | LOC: M RAD 09:41 | PROVIDERS: ATTEND Physician Assistant | DX: N93.9 Abnormal uterine and vaginal bleeding, unspecified (principal); R93.89 Abnormal findings on diagnostic imaging of other specified body structures ==

== ENCOUNTER → 2024-11-30 | Outpatient (CLI) | payer OTHER ==
[~2024-11-30] MED LIST changes: +LIDO1ADH93 TOP; -LIDO5DIS41 TOP
== END ==
LOC: M RAD 11:16
PROVIDERS: ATTEND Obstetrics & Gynecology
DX: N92.1 Excessive and frequent menstruation with irregular cycle (principal)